=== PATIENT | male | born 1990 ===

== ENCOUNTER 2023-01-02 16:35 | Emergency (ER) | payer MEDICAID, SELFPAY ==
--- NOTE | ~2023-01-02 | XR_ITS ---
EXAMINATION: XR LUMBOSACRAL SPINE CLINICAL INFORMATION: Back pain after heavy lifting. COMPARISON: CT abdomen/pelvis 03/29/2020. TECHNIQUE: Three views of the lumbosacral spine. FINDINGS: Chronic compression deformity at L1. No new compression fractures. No traumatic subluxation. Intravertebral disc height loss at T12-L1, otherwise within normal limits. No significant facet arthropathy. SI joints are symmetric. No significant paraspinal soft tissue abnormality. XR/XR lumbar spine 2-3V IMPRESSION: 1. Chronic compression deformity at L1. 2. No acute compression fractures or traumatic subluxation.
[2023-01-02 17:14] VITALS: BP 121/77; PULSE 142; RESP 18; TEMP 37.1; O2SAT 96; BMI 29.5
--- NOTE | 2023-01-02 17:16 | ED.GENADULT ---
HPI - General Adult General Chief complaint: Back Pain/Injury <SURJIT Suero - Last Filed: 01/03/23 12:28> Stated complaint: lower back pain radiating down leg <SURJIT Suero - Last Filed: 01/03/23 12:28> Time Seen by Provider: 01/02/23 17:39 <SURJIT Suero - Last Filed: 01/03/23 12:28> Source: patient, RN notes reviewed and old records reviewed <Elier Washington - Last Filed: 01/02/23 23:03> Mode of arrival: ambulatory <Elier Washington - Last Filed: 01/02/23 23:03> Limitations: no limitations <Elier Washington - Last Filed: 01/02/23 23:03> History of Present Illness HPI narrative: 82-year-old male presents for evaluation of lower back pain Patient reports that he has a known history of an L1 fracture from about 3 years ago. He states that yesterday he was lifting a large fish tank. Next he states about an hour later he developed severe lower abdominal pain. The pain radiated to both of his legs. Denies any numbness, tingling, weakness, bladder or bowel incontinence or retention He reports his pain is 8/10. The patient is on a methadone program. He reports that he has been from street drugs for at least the last 8 months. Denies Any fevers, chills Of note, in triage the patient was found to have a heart rate that was reported as 234 and regular By the time he had his EKG heart rate was 92, sinus rhythm. No ST segment elevation or depressions. Patient denies any known cardiac history He denies experiencing any shortness of breath, palpitations, chest pain <Elier Washington - Last Filed: 01/02/23 23:03> Related Data Home medications: Previous Rx's Medication Instructions Recorded dexamethasone 4 mg tablet 4 mg PO BID #5 tabs 01/02/23 oxycodone 5 mg tablet 5 mg PO Q6H PRN pain (scale score 01/02/23 7-10) #12 tabs <SURJIT Suero - Last Filed: 01/03/23 12:28> Allergies/adverse reactions: Allergies Allergy/AdvReac Type Severity Reaction Status Date / Time Seasonal Allergies Allergy Mild Itchy Eyes Verified 01/02/23 17:14 tree nut [TREE NUT] Allergy Mild ITCHY Verified 01/02/23 17:14 THROAT <SURJIT Suero - Last Filed: 01/03/23 12:28> Review of Systems Constitutional: Constitutional: Reports as per HPI, Denies chills, Denies fatigue, Denies fever(s) and Denies headache(s) <Elier Washington - Last Filed: 01/02/23 23:03> ENT: Denies headache(s) <Elier Washington - Last Filed: 01/02/23 23:03> Cardiovascular: Cardiovascular: Denies chest pain and Denies dyspnea <Elier Washington - Last Filed: 01/02/23 23:03> Respiratory: Respiratory: Denies cough and Denies dyspnea <Elier Washington - Last Filed: 01/02/23 23:03> Gastrointestinal: Gastrointestinal: Denies abdominal pain, Denies constipation and Denies vomiting <Elier Washington - Last Filed: 01/02/23 23:03> Genitourinary: Genitourinary: Denies difficulty urinating and Denies dysuria <Elier Washington - Last Filed: 01/02/23 23:03> Musculoskeletal: Musculoskeletal: Reports back pain <Elier Washington - Last Filed: 01/02/23 23:03> Neurologic: Denies headache(s) and Denies focal weakness <Elier Washington - Last Filed: 01/02/23 23:03> Endocrine: Endocrine: Denies fatigue <Elier Washington - Last Filed: 01/02/23 23:03> [facility] [place] Social History Social History: Social History Advance Directives: No Advance Directives Information Provided: No <SURJIT Suero - Last Filed: 01/03/23 12:28> Physical Exam ED Vital Signs: Vital Signs - 24 hr 01/02/23 17:14 01/02/23 17:40 01/02/23 19:18 Temperature 98.8 F 98.2 F 98.7 F Pulse Rate 142 H 107 H 90 Respiratory Rate 18 20 12 Blood Pressure 121/77 123/76 Pulse Oximetry 96 96 Oxygen Delivery Method Room Air Room Air 01/02/23 21:29 01/02/23 21:29 Temperature 98.9 F Pulse Rate 83 78 Respiratory Rate 17 18 Blood Pressure 120/74 108/65 Pulse Oximetry 97 96 Oxygen Delivery Method Room Air Room Air BMI result Body Mass Index 29.5 <SURJIT Suero - Last Filed: 01/03/23 12:28> Vital Signs - 24 hr 01/02/23 17:14 01/02/23 17:40 01/02/23 19:18 Temperature 98.8 F 98.2 F 98.7 F Pulse Rate 142 H 107 H 90 Respiratory Rate 18 20 12 Blood Pressure 121/77 123/76 Pulse Oximetry 96 96 Oxygen Delivery Method Room Air Room Air 01/02/23 21:29 01/02/23 21:29 Temperature 98.9 F Pulse Rate 83 78 Respiratory Rate 17 18 Blood Pressure 120/74 108/65 Pulse Oximetry 97 96 Oxygen Delivery Method Room Air Room Air BMI result Body Mass Index 29.5 <Elier Washington - Last Filed: 01/02/23 23:03> Const General: healthy appearing, comfortable, no acute distress, alert and awake <Elier Washington - Last Filed: 01/02/23 23:03> Nutritional Appearance: well nourished <Elier Washington - Last Filed: 01/02/23 23:03> Orientation/consciousness: patient oriented x3 <Elier Washington - Last Filed: 01/02/23 23:03> HENMT Head: Yes normocephalic and Yes atraumatic <Elier Washington - Last Filed: 01/02/23 23:03> Throat: Yes posterior oropharynx normal <Elier Washington - Last Filed: 01/02/23 23:03> Eyes Eyelids: Yes eyelids normal <Elier Washington - Last Filed: 01/02/23 23:03> Conjunctivae: conjunctivae normal <Elier Washington - Last Filed: 01/02/23 23:03> Sclerae: sclerae normal <Elier Washington - Last Filed: 01/02/23 23:03> Corneas: corneas normal <Elier Washington - Last Filed: 01/02/23 23:03> Pupils: Equal, round and reactive pupils present <Elier MendesRed Devil - Last Filed: 01/02/23 23:03> EOM: EOMs intact bilaterally <Elier OJeff - Last Filed: 01/02/23 23:03> Neck Neck: Yes full ROM <Elier ORed Devil - Last Filed: 01/02/23 23:03> Resp Effort & Inspection: normal respiratory effort, able to speak in complete sentences, no audible wheezes and not labored <Elier ORed Devil - Last Filed: 01/02/23 23:03> Auscultation: clear to auscultation bilaterally <Elier O Last Filed: 01/02/23 23:03> Cardio Rate: regular rate <Elier Last Filed: 01/02/23 23:03> Rhythm: regular rhythm <Elier Filed: 01/02/23 23:03> GI Inspection: No distended <Elier OJeff - Last Filed: 01/02/23 23:03> Palpation (GI): Soft to palpation, not firm, nontender, no guarding and not rigid <Elier O Last Filed: 01/02/23 23:03> Auscultation: normoactive bowel sounds <Elier O Last Filed: 01/02/23 23:03> Back/Spine/Pelvis Other: Tenderness across the lumbar region with focal tenderness over L1. No step-offs or deformities. Straight leg raise negative bilaterally. Strength 5/5 to the bilateral lower extremities in all major muscle groups <Elier OJeff - Last Filed: 01/02/23 23:03> Skin General skin exam: no rashes or lesions noted and elasticity normal <Elier O Last Filed: 01/02/23 23:03> Neuro General: patient oriented x3 <Elier O Last Filed: 01/02/23 23:03> Cranial nerves: Yes CN's II-XII intact bilaterally, Yes Equal, round and reactive pupils present and Yes Bilaterally intact EOM present <Elier ORed Devil - Last Filed: 01/02/23 23:03> Cognition (Neuro): normal cognition <Elier Washington - Last Filed: 01/02/23 23:03> Extrem Other: Moving all extremities well without any obvious deformities <Elier Washington - Last Filed: 01/02/23 23:03> Course Course Course Narrative: RME: 32 yold male presents to the ED for lower back pain after heavy lifting of fish tank yesterday. patient states known L1 fracture. also feeling nausous. denies UA symptoms. SARS, lumbar xray, and UA ordered. On triage Heart Rate was 234 highest and lowest 162. patient brought to the ED bed 11 and had EKG which showed normal sinus rhythm with HR of 93. On monitor Heart Rate is now 110. Dr. Luque made aware <SURJIT Suero - Last Filed: 01/03/23 12:28> Reevaluation(s) Reevaluation #1: Patient has had no further evidence of tachycardia, the remainder was workup has been negative. The patient was discharged with dexamethasone and a short course of Percocet for the next 3 days. He will follow-up with his PCP <Elier Washington - Last Filed: 01/02/23 23:03> Time: 21:15 <Elier Washington - Last Filed: 01/02/23 23:03> Reevaluation #2: Received a call from the patient apparently the pharmacy is out of Percocetbonifacio cancel that order and change his prescription to oxycodone without Tylenol <Elier Washington - Last Filed: 01/02/23 23:03> Time: 23:03 <Elier Washington - Last Filed: 01/02/23 23:03> Medications Administered Discontinued Medications Generic Name Dose Route Start Last Admin Trade Name Freq PRN Reason Stop Dose Admin Dexamethasone 4 mg 01/02/23 18:01 01/02/23 18:18 Dexamethasone 4 Mg Tablet PO 01/02/23 18:02 4 mg ONCE ONE Administration Ketorolac Tromethamine 30 mg 01/02/23 18:01 01/02/23 18:18 Ketorolac Tromethamine 30 Mg/Ml Vial IM 01/02/23 18:02 30 mg ONCE ONE Administration Ondansetron HCl 4 mg 01/02/23 20:47 01/02/23 21:25 Ondansetron Odt 4 Mg Tab.Rapdis TRANSLINGU 01/02/23 20:48 4 mg ONCE ONE Administration Oxycodone HCl 5 mg 01/02/23 20:47 01/02/23 21:25 Oxycodone Hcl Immed Release 5 Mg Tablet PO 01/02/23 20:48 5 mg ONCE ONE Administration <SURJIT Suero - Last Filed: 01/03/23 12:28> Medications Administered Discontinued Medications Generic Name Dose Route Start Last Admin Trade Name Gabe PRN Reason Stop Dose Admin Dexamethasone 4 mg 01/02/23 18:01 01/02/23 18:18 Dexamethasone 4 Mg Tablet PO 01/02/23 18:02 4 mg ONCE ONE Administration Ketorolac Tromethamine 30 mg 01/02/23 18:01 01/02/23 18:18 Ketorolac Tromethamine 30 Mg/Ml Vial IM 01/02/23 18:02 30 mg ONCE ONE Administration Ondansetron HCl 4 mg 01/02/23 20:47 01/02/23 21:25 Ondansetron Odt 4 Mg Tab.Rapdis TRANSLINGU 01/02/23 20:48 4 mg ONCE ONE Administration Oxycodone HCl 5 mg 01/02/23 20:47 01/02/23 21:25 Oxycodone Hcl Immed Release 5 Mg Tablet PO 01/02/23 20:48 5 mg ONCE ONE Administration <Elier Washington - Last Filed: 01/02/23 23:03> Medical Decision Making Medical Decision Making MDM Narrative: S for back pain that is most likely radiculopathy related to his of movements yesterday with the large fish tank. Clinically has sciatica. No neuro signs or symptoms. Physical exam is reassuring, no warning signs for chronic wetness syndrome. Given the patient's tachycardia in triage we will get a cardiac workup including cardiac monitoring, electrolytes, high since we troponin. Will also check a TSH level. It is possible the patient had a brief episode of SVT related to the amount of discomfort he was in. While lying on the stretcher he is resting comfortably in his heart rate is regular, 92 on the monitor. Toradol and dexamethasone for his discomfort. <Elier Washington - Last Filed: 01/02/23 23:03> Differential Diagnosis Back pain Radiculopathy Sciatica Disc herniation Muscle spasm Cardiac arrhythmia SVT <Elier Washington - Last Filed: 01/02/23 23:03> Lab Data Result Diagrams: 01/02/23 18:32 01/02/23 18:32 <SURJIT Suero - Last Filed: 01/03/23 12:28> Labs: Lab Results 01/02/23 01/02/23 01/02/23 Range/Units 18:27 18:32 18:32 WBC 6.9 (4.8-10.8) X10*3/uL RBC 5.18 (4.60-5.80) X10*6/uL Hgb 14.7 (14.0-18.0) g/dl Hct 43.8 (42.0-52.0) % MCV 84.6 (80.0-98.0) fL MCH 28.4 (27.0-33.0) pg MCHC 33.6 (31.0-36.0) g/dl RDW 13.5 (11.0-16.0) % Plt Count 187 (160-400) X10*3/uL MPV 9.6 (9.4-12.4) fL Immature Gran % (Auto) 0.3 (0.0-0.4) % Neut % (Auto) 85.3 H (45-73) % Lymph % (Auto) 8.1 L (20-40) % [place] % (Auto) 5.9 (2-11) % Eos % (Auto) 0.1 (0-4) % Baso % (Auto) 0.3 (0-2) % Lymph # (Auto) 0.6 L (1.2-4.9) X10*3/uL [place] # (Auto) 0.4 (0.1-1.2) X10*3/uL Eos # (Auto) 0.0 (0.0-0.4) X10*3/uL Baso # (Auto) 0.0 (0.0-0.2) X10*3/uL Abs Immat Gran (auto) 0.02 (0.00-0.03) X10*3/uL Absolute Neuts (auto) 5.9 (2.0-8.3) x10*3/uL Absolute Nucleated RBC 0.000 (0.0-0.012) X10*3/uL Nucleated RBC % (auto) 0.0 (0.0-0.2) /100WBC PT 11.2 (10.0-13.1) SEC INR 1.0 (0.9-1.1) APTT 29.3 (26.0-36.4) SEC Sodium (135-145) mmol/L Potassium (3.3-5.1) mmol/L Chloride (96-108) mmol/L Carbon Dioxide (22-29) mmol/L Anion Gap (12-20) BUN (9-16) mg/dL Creatinine (0.5-1.4) mg/dL Estim Creat Clear Calc Estimated GFR Random Glucose (60-115) mg/dL Calcium (8.4-10.2) mg/dL Total Bilirubin (0.0-1.0) mg/dL AST (5-37) U/L ALT (0-40) U/L Alkaline Phosphatase (39-117) U/L Troponin I High Sens (<3.5-35.0) ng/L Total Protein (6.5-8.0) g/dL Albumin (3.5-5.0) g/dL TSH (0.32-4.0) uIU/mL Urine Color Urine Appearance Urine pH (5.0-9.0) Ur Specific [place] (1.005-1.025) Urine Protein (Neg-Trace) mg/dL Urine Glucose (UA) (Negative) mg/dL Urine Ketones (Negative) mg/dL Urine Blood (Negative) Urine Nitrite (Negative) Ur Leukocyte Esterase (Negative) Urine Opiates Screen (Not Detect) Urine Fentanyl Screen (Not Detect) Ur Barbiturates Screen (Not Detect) Ur Phencyclidine Scrn (Not Detect) Ur Amphetamines Screen (Not Detect) U Benzodiazepines Scrn (Not Detect) Urine Cocaine Screen (Not Detect) U Marijuana (THC) Screen (Not Detect) Influenza Type A (PCR) NEGATIVE (Negative) Influenza Type B (PCR) NEGATIVE (Negative) RSV RNA Qual (PCR) NEGATIVE (Negative) SARS-CoV-2 RNA (RT-PCR) NEGATIVE (Negative) 01/02/23 01/02/23 01/02/23 Range/Units 18:32 18:32 19:28 WBC (4.8-10.8) X10*3/uL RBC (4.60-5.80) X10*6/uL Hgb (14.0-18.0) g/dl Hct (42.0-52.0) % MCV (80.0-98.0) fL MCH (27.0-33.0) pg MCHC (31.0-36.0) g/dl RDW (11.0-16.0) % Plt Count (160-400) X10*3/uL MPV (9.4-12.4) fL Immature Gran % (Auto) (0.0-0.4) % Neut % (Auto) (45-73) % Lymph % (Auto) (20-40) % [place] % (Auto) (2-11) % Eos % (Auto) (0-4) % Baso % (Auto) (0-2) % Lymph # (Auto) (1.2-4.9) X10*3/uL [place] # (Auto) (0.1-1.2) X10*3/uL Eos # (Auto) (0.0-0.4) X10*3/uL Baso # (Auto) (0.0-0.2) X10*3/uL Abs Immat Gran (auto) (0.00-0.03) X10*3/uL Absolute Neuts (auto) (2.0-8.3) x10*3/uL Absolute Nucleated RBC (0.0-0.012) X10*3/uL Nucleated RBC % (auto) (0.0-0.2) /100WBC PT (10.0-13.1) SEC INR (0.9-1.1) APTT (26.0-36.4) SEC Sodium 138 (135-145) mmol/L Potassium 4.0 (3.3-5.1) mmol/L Chloride 105 (96-108) mmol/L Carbon Dioxide 25 (22-29) mmol/L Anion Gap 12 (12-20) BUN 15 (9-16) mg/dL Creatinine 0.87 (0.5-1.4) mg/dL Estim Creat Clear Calc 124.3 Estimated GFR > 60 Random Glucose 101 (60-115) mg/dL Calcium 9.2 (8.4-10.2) mg/dL Total Bilirubin 0.9 (0.0-1.0) mg/dL AST 23 (5-37) U/L ALT 26 (0-40) U/L Alkaline Phosphatase 83 (39-117) U/L Troponin I High Sens < 2.7 (<3.5-35.0) ng/L Total Protein 6.8 (6.5-8.0) g/dL Albumin 4.4 (3.5-5.0) g/dL TSH 0.33 (0.32-4.0) uIU/mL Urine Color Dark Yellow Urine Appearance Clear Urine pH 5.5 (5.0-9.0) Ur Specific [place] >= 1.030 H (1.005-1.025) Urine Protein Trace (Neg-Trace) mg/dL Urine Glucose (UA) Negative (Negative) mg/dL Urine Ketones Trace (Negative) mg/dL Urine Blood Negative (Negative) Urine Nitrite Negative (Negative) Ur Leukocyte Esterase Negative (Negative) Urine Opiates Screen (Not Detect) Urine Fentanyl Screen (Not Detect) Ur Barbiturates Screen (Not Detect) Ur Phencyclidine Scrn (Not Detect) Ur Amphetamines Screen (Not Detect) U Benzodiazepines Scrn (Not Detect) Urine Cocaine Screen (Not Detect) U Marijuana (THC) Screen (Not Detect) Influenza Type A (PCR) (Negative) Influenza Type B (PCR) (Negative) RSV RNA Qual (PCR) (Negative) SARS-CoV-2 RNA (RT-PCR) (Negative) 01/02/23 Range/Units 19:28 WBC (4.8-10.8) X10*3/uL RBC (4.60-5.80) X10*6/uL Hgb (14.0-18.0) g/dl Hct (42.0-52.0) % MCV (80.0-98.0) fL MCH (27.0-33.0) pg MCHC (31.0-36.0) g/dl RDW (11.0-16.0) % Plt Count (160-400) X10*3/uL MPV (9.4-12.4) fL Immature Gran % (Auto) (0.0-0.4) % Neut % (Auto) (45-73) % Lymph % (Auto) (20-40) % [place] % (Auto) (2-11) % Eos % (Auto) (0-4) % Baso % (Auto) (0-2) % Lymph # (Auto) (1.2-4.9) X10*3/uL [place] # (Auto) (0.1-1.2) X10*3/uL Eos # (Auto) (0.0-0.4) X10*3/uL Baso # (Auto) (0.0-0.2) X10*3/uL Abs Immat Gran (auto) (0.00-0.03) X10*3/uL Absolute Neuts (auto) (2.0-8.3) x10*3/uL Absolute Nucleated RBC (0.0-0.012) X10*3/uL Nucleated RBC % (auto) (0.0-0.2) /100WBC PT (10.0-13.1) SEC INR (0.9-1.1) APTT (26.0-36.4) SEC Sodium (135-145) mmol/L Potassium (3.3-5.1) mmol/L Chloride (96-108) mmol/L Carbon Dioxide (22-29) mmol/L Anion Gap (12-20) BUN (9-16) mg/dL Creatinine (0.5-1.4) mg/dL Estim Creat Clear Calc Estimated GFR Random Glucose (60-115) mg/dL Calcium (8.4-10.2) mg/dL Total Bilirubin (0.0-1.0) mg/dL AST (5-37) U/L ALT (0-40) U/L Alkaline Phosphatase (39-117) U/L Troponin I High Sens (<3.5-35.0) ng/L Total Protein (6.5-8.0) g/dL Albumin (3.5-5.0) g/dL TSH (0.32-4.0) uIU/mL Urine Color Urine Appearance Urine pH (5.0-9.0) Ur Specific [place] (1.005-1.025) Urine Protein (Neg-Trace) mg/dL Urine Glucose (UA) (Negative) mg/dL Urine Ketones (Negative) mg/dL Urine Blood (Negative) Urine Nitrite (Negative) Ur Leukocyte Esterase (Negative) Urine Opiates Screen Not Detected (Not Detect) Urine Fentanyl Screen POSITIVE H (Not Detect) Ur Barbiturates Screen Not Detected (Not Detect) Ur Phencyclidine Scrn Not Detected (Not Detect) Ur Amphetamines Screen Not Detected (Not Detect) U Benzodiazepines Scrn Not Detected (Not Detect) Urine Cocaine Screen Not Detected (Not Detect) U Marijuana (THC) Screen Not Detected (Not Detect) Influenza Type A (PCR) (Negative) Influenza Type B (PCR) (Negative) RSV RNA Qual (PCR) (Negative) SARS-CoV-2 RNA (RT-PCR) (Negative) <SURJIT Suero - Last Filed: 01/03/23 12:28> Lab Results 01/02/23 01/02/23 01/02/23 Range/Units 18:27 18:32 18:32 WBC 6.9 (4.8-10.8) X10*3/uL RBC 5.18 (4.60-5.80) X10*6/uL Hgb 14.7 (14.0-18.0) g/dl Hct 43.8 (42.0-52.0) % MCV 84.6 (80.0-98.0) fL MCH 28.4 (27.0-33.0) pg MCHC 33.6 (31.0-36.0) g/dl RDW 13.5 (11.0-16.0) % Plt Count 187 (160-400) X10*3/uL MPV 9.6 (9.4-12.4) fL Immature Gran % (Auto) 0.3 (0.0-0.4) % Neut % (Auto) 85.3 H (45-73) % Lymph % (Auto) 8.1 L (20-40) % [place] % (Auto) 5.9 (2-11) % Eos % (Auto) 0.1 (0-4) % Baso % (Auto) 0.3 (0-2) % Lymph # (Auto) 0.6 L (1.2-4.9) X10*3/uL [place] # (Auto) 0.4 (0.1-1.2) X10*3/uL Eos # (Auto) 0.0 (0.0-0.4) X10*3/uL Baso # (Auto) 0.0 (0.0-0.2) X10*3/uL Abs Immat Gran (auto) 0.02 (0.00-0.03) X10*3/uL Absolute Neuts (auto) 5.9 (2.0-8.3) x10*3/uL Absolute Nucleated RBC 0.000 (0.0-0.012) X10*3/uL Nucleated RBC % (auto) 0.0 (0.0-0.2) /100WBC PT 11.2 (10.0-13.1) SEC INR 1.0 (0.9-1.1) APTT 29.3 (26.0-36.4) SEC Sodium (135-145) mmol/L Potassium (3.3-5.1) mmol/L Chloride (96-108) mmol/L Carbon Dioxide (22-29) mmol/L Anion Gap (12-20) BUN (9-16) mg/dL Creatinine (0.5-1.4) mg/dL Estim Creat Clear Calc Estimated GFR Random Glucose (60-115) mg/dL Calcium (8.4-10.2) mg/dL Total Bilirubin (0.0-1.0) mg/dL AST (5-37) U/L ALT (0-40) U/L Alkaline Phosphatase (39-117) U/L Troponin I High Sens (<3.5-35.0) ng/L Total Protein (6.5-8.0) g/dL Albumin (3.5-5.0) g/dL TSH (0.32-4.0) uIU/mL Urine Color Urine Appearance Urine pH (5.0-9.0) Ur Specific [place] (1.005-1.025) Urine Protein (Neg-Trace) mg/dL Urine Glucose (UA) (Negative) mg/dL Urine Ketones (Negative) mg/dL Urine Blood (Negative) Urine Nitrite (Negative) Ur Leukocyte Esterase (Negative) Urine Opiates Screen (Not Detect) Urine Fentanyl Screen (Not Detect) Ur Barbiturates Screen (Not Detect) Ur Phencyclidine Scrn (Not Detect) Ur Amphetamines Screen (Not Detect) U Benzodiazepines Scrn (Not Detect) Urine Cocaine Screen (Not Detect) U Marijuana (THC) Screen (Not Detect) Influenza Type A (PCR) NEGATIVE (Negative) Influenza Type B (PCR) NEGATIVE (Negative) RSV RNA Qual (PCR) NEGATIVE (Negative) SARS-CoV-2 RNA (RT-PCR) NEGATIVE (Negative) 01/02/23 01/02/23 01/02/23 Range/Units 18:32 18:32 19:28 WBC (4.8-10.8) X10*3/uL RBC (4.60-5.80) X10*6/uL Hgb (14.0-18.0) g/dl Hct (42.0-52.0) % MCV (80.0-98.0) fL MCH (27.0-33.0) pg MCHC (31.0-36.0) g/dl RDW (11.0-16.0) % Plt Count (160-400) X10*3/uL MPV (9.4-12.4) fL Immature Gran % (Auto) (0.0-0.4) % Neut % (Auto) (45-73) % Lymph % (Auto) (20-40) % [place] % (Auto) (2-11) % Eos % (Auto) (0-4) % Baso % (Auto) (0-2) % Lymph # (Auto) (1.2-4.9) X10*3/uL [place] # (Auto) (0.1-1.2) X10*3/uL Eos # (Auto) (0.0-0.4) X10*3/uL Baso # (Auto) (0.0-0.2) X10*3/uL Abs Immat Gran (auto) (0.00-0.03) X10*3/uL Absolute Neuts (auto) (2.0-8.3) x10*3/uL Absolute Nucleated RBC (0.0-0.012) X10*3/uL Nucleated RBC % (auto) (0.0-0.2) /100WBC PT (10.0-13.1) SEC INR (0.9-1.1) APTT (26.0-36.4) SEC Sodium 138 (135-145) mmol/L Potassium 4.0 (3.3-5.1) mmol/L Chloride 105 (96-108) mmol/L Carbon Dioxide 25 (22-29) mmol/L Anion Gap 12 (12-20) BUN 15 (9-16) mg/dL Creatinine 0.87 (0.5-1.4) mg/dL Estim Creat Clear Calc 124.3 Estimated GFR > 60 Random Glucose 101 (60-115) mg/dL Calcium 9.2 (8.4-10.2) mg/dL Total Bilirubin 0.9 (0.0-1.0) mg/dL AST 23 (5-37) U/L ALT 26 (0-40) U/L Alkaline Phosphatase 83 (39-117) U/L Troponin I High Sens < 2.7 (<3.5-35.0) ng/L Total Protein 6.8 (6.5-8.0) g/dL Albumin 4.4 (3.5-5.0) g/dL TSH 0.33 (0.32-4.0) uIU/mL Urine Color Dark Yellow Urine Appearance Clear Urine pH 5.5 (5.0-9.0) Ur Specific [place] >= 1.030 H (1.005-1.025) Urine Protein Trace (Neg-Trace) mg/dL Urine Glucose (UA) Negative (Negative) mg/dL Urine Ketones Trace (Negative) mg/dL Urine Blood Negative (Negative) Urine Nitrite Negative (Negative) Ur Leukocyte Esterase Negative (Negative) Urine Opiates Screen (Not Detect) Urine Fentanyl Screen (Not Detect) Ur Barbiturates Screen (Not Detect) Ur Phencyclidine Scrn (Not Detect) Ur Amphetamines Screen (Not Detect) U Benzodiazepines Scrn (Not Detect) Urine Cocaine Screen (Not Detect) U Marijuana (THC) Screen (Not Detect) Influenza Type A (PCR) (Negative) Influenza Type B (PCR) (Negative) RSV RNA Qual (PCR) (Negative) SARS-CoV-2 RNA (RT-PCR) (Negative) 01/02/23 Range/Units 19:28 WBC (4.8-10.8) X10*3/uL RBC (4.60-5.80) X10*6/uL Hgb (14.0-18.0) g/dl Hct (42.0-52.0) % MCV (80.0-98.0) fL MCH (27.0-33.0) pg MCHC (31.0-36.0) g/dl RDW (11.0-16.0) % Plt Count (160-400) X10*3/uL MPV (9.4-12.4) fL Immature Gran % (Auto) (0.0-0.4) % Neut % (Auto) (45-73) % Lymph % (Auto) (20-40) % [place] % (Auto) (2-11) % Eos % (Auto) (0-4) % Baso % (Auto) (0-2) % Lymph # (Auto) (1.2-4.9) X10*3/uL [place] # (Auto) (0.1-1.2) X10*3/uL Eos # (Auto) (0.0-0.4) X10*3/uL Baso # (Auto) (0.0-0.2) X10*3/uL Abs Immat Gran (auto) (0.00-0.03) X10*3/uL Absolute Neuts (auto) (2.0-8.3) x10*3/uL Absolute Nucleated RBC (0.0-0.012) X10*3/uL Nucleated RBC % (auto) (0.0-0.2) /100WBC PT (10.0-13.1) SEC INR (0.9-1.1) APTT (26.0-36.4) SEC Sodium (135-145) mmol/L Potassium (3.3-5.1) mmol/L Chloride (96-108) mmol/L Carbon Dioxide (22-29) mmol/L Anion Gap (12-20) BUN (9-16) mg/dL Creatinine (0.5-1.4) mg/dL Estim Creat Clear Calc Estimated GFR Random Glucose (60-115) mg/dL Calcium (8.4-10.2) mg/dL Total Bilirubin (0.0-1.0) mg/dL AST (5-37) U/L ALT (0-40) U/L Alkaline Phosphatase (39-117) U/L Troponin I High Sens (<3.5-35.0) ng/L Total Protein (6.5-8.0) g/dL Albumin (3.5-5.0) g/dL TSH (0.32-4.0) uIU/mL Urine Color Urine Appearance Urine pH (5.0-9.0) Ur Specific [place] (1.005-1.025) Urine Protein (Neg-Trace) mg/dL Urine Glucose (UA) (Negative) mg/dL Urine Ketones (Negative) mg/dL Urine Blood (Negative) Urine Nitrite (Negative) Ur Leukocyte Esterase (Negative) Urine Opiates Screen Not Detected (Not Detect) Urine Fentanyl Screen POSITIVE H (Not Detect) Ur Barbiturates Screen Not Detected (Not Detect) Ur Phencyclidine Scrn Not Detected (Not Detect) Ur Amphetamines Screen Not Detected (Not Detect) U Benzodiazepines Scrn Not Detected (Not Detect) Urine Cocaine Screen Not Detected (Not Detect) U Marijuana (THC) Screen Not Detected (Not Detect) Influenza Type A (PCR) (Negative) Influenza Type B (PCR) (Negative) RSV RNA Qual (PCR) (Negative) SARS-CoV-2 RNA (RT-PCR) (Negative) <Elier Washington - Last Filed: 01/02/23 23:03> Independent Interpretation I performed an independent interpretation of an: EKG (Sinus rhythm with a heart of 92 beats per minute.) <Elier Washington - Last Filed: 01/02/23 23:03> Discharge Plan Discharge Clinical Impression: Lumbar radiculopathy <SURJIT Suero - Last Filed: 01/03/23 12:28> Patient Disposition: Home, Self-Care <SURJIT Suero - Last Filed: 01/03/23 12:28> Instructions: Lumbar Radiculopathy (ED) <SURJIT Suero - Last Filed: 01/03/23 12:28> Prescriptions: New dexamethasone 4 mg tablet 4 mg PO BID Qty: 5 0RF oxycodone 5 mg tablet 5 mg PO Q6H PRN (Reason: pain (scale score 7-10)) Qty: 12 0RF Rx Instructions: Partial Fill upon patient request. <SURJIT Suero - Last Filed: 01/03/23 12:28> Interventions: ED Discharge Assessment Last Done: 01/02/23 21:28 <SURJIT Suero Last Filed: 01/03/23 12:28> Discharge Date/Time: 01/02/23 21:32 <SURJIT Suero - Last Filed: 01/03/23 12:28>
--- NOTE | 2023-01-02 17:18 | ECG_ITS ---
Test Reason : TACHYCARDIA Blood Pressure : / mmHG Vent. Rate : 092 BPM Atrial Rate : 092 BPM P-R Int : 154 ms QRS Dur : 084 ms QT Int : 346 ms P-R-T Axes : 076 026 016 degrees QTc Int : 427 ms Normal sinus rhythm Normal ECG When compared with ECG of 01-DEC-2018 12:37, ST no longer elevated in Anterolateral leads T wave inversion now evident in Inferior leads Nonspecific T wave abnormality now evident in Lateral leads Referred By: Dylan Alvarado Electronically Signed By:ROBERTO BULLOCK MD
[2023-01-02 17:40] VITALS: PULSE 107; RESP 20; TEMP 36.8
--- NOTE | 2023-01-02 17:42 | PC.NURSE ---
Pt brought back from triage for episode of SVT, however patient denies complaints of CP/SOB, reports he came to the ED for a previous back injury that is hurting this morning d/t heavy lifting yesterday. complaints of fever/nausea and not feeling well this morning. Pt currently in HR range of 102-108, a/Ox4, denies pain at this time, currently at Xray for back stable on RA. Pt brought into ED in wheelchair drinking sprite, and denying any complaints n/v/d
[2023-01-02] MEDS: Ketorolac Tromethamine 30 MG/ML VIAL IM (18:18)
[2023-01-02] MEDS: dexAMETHasone 4 MG TABLET PO (18:18)
[2023-01-02 18:37] LABS: MANUAL DIFF FLAG NO
[2023-01-02 18:41] LABS: Basophils Percent Auto 0.3 % (0-2); Eosinophils Percent Auto 0.1 % (0-4); Hematocrit 43.8 % (42.0-52.0); Hemoglobin 14.7 g/dl (14.0-18.0); Imm Gran Abs Auto 0.02 X10*3/uL (0.00-0.03); Imm Gran Pct Auto 0.3 % (0.0-0.4); Lymphocytes Absolute Auto 0.6 X10*3/uL (1.2-4.9); Lymphocytes Percent Auto 8.1 % (20-40); Mean Corpuscular HGB Conc 33.6 g/dl (31.0-36.0); Mean Corpuscular Hemoglobin 28.4 pg (27.0-33.0); Mean Corpuscular Volume 84.6 fL (80.0-98.0); Mean Platelet Volume 9.6 fL (9.4-12.4); Monocytes Absolute Auto 0.4 X10*3/uL (0.1-1.2); Monocytes Percent Auto 5.9 % (2-11); Neutrophils Absolute Auto 5.9 x10*3/uL (2.0-8.3); Neutrophils Percent Auto 85.3 % (45-73); Platelet Count 187 X10*3/uL (160-400); Red Blood Count 5.18 X10*6/uL (4.60-5.80); Red Cell Distribution Width 13.5 % (11.0-16.0); White Blood Count 6.9 X10*3/uL (4.8-10.8)
[2023-01-02 18:46] LABS: Prothrombin Time 11.2 SEC (10.0-13.1)
[2023-01-02 18:49] LABS: Partial Thromboplastin Time 29.3 SEC (26.0-36.4)
[2023-01-02 19:02] LABS: Alanine Aminotransferase 26 U/L (0-40); Albumin Level 4.4 g/dL (3.5-5.0); Alkaline Phosphatase 83 U/L (39-117); Anion Gap 12 (12-20); Aspartate Amino Transferase 23 U/L (5-37); Bilirubin Total 0.9 mg/dL (0.0-1.0); Blood Urea Nitrogen 15 mg/dL (9-16); Calcium 9.2 mg/dL (8.4-10.2); Carbon Dioxide 25 mmol/L (22-29); Chloride 105 mmol/L (96-108); Creatinine Clr Calc Pharmacy 124.3; Estimated Glomerular Filt Rate > 60; Glucose Random 101 mg/dL (60-115); Sodium 138 mmol/L (135-145); Total Protein 6.8 g/dL (6.5-8.0)
[2023-01-02 19:12] LABS: Troponin-I High Sensitivity < 2.7 ng/L (<3.5-35.0)
[2023-01-02 19:15] LABS: Influenza A PCR NEGATIVE (Negative); Influenza B PCR NEGATIVE (Negative); Resp Syncy Virus RNA Qual PCR NEGATIVE (Negative); SARS COV2 PCR INHOUSE NEGATIVE (Negative)
[2023-01-02 19:16] LABS: TSH reflex Free T4 0.33 uIU/mL (0.32-4.0)
[2023-01-02 19:18] VITALS: BP 123/76; PULSE 90; RESP 12; TEMP 37.1; O2SAT 96
--- NOTE | 2023-01-02 19:25 | PC.NURSE ---
assumed care of pt aox4 c/o 04/04 pain and nausea observed pt ambulate to restroom safely/independently no apparent distress, able to speak in full sentences
[2023-01-02 19:36] LABS: Appearance Urine Clear; Color Urine Dark Yellow; Glucose Urine UA Negative (Negative); Leukocyte Esterase Urine Negative (Negative); Nitrite Urine Negative (Negative); PH 5.5 (5.0-9.0); Specific Gravity - Urine >= 1.030 (1.005-1.025); Urine Blood Negative (Negative); Urine Ketones Trace mg/dL (Negative); Urine Protein Trace mg/dL (Neg-Trace)
[2023-01-02 19:53] LABS: Amphetamine Screen Urine Not Detected (Not Detect); Barbiturates, Urine Not Detected (Not Detect); Benzodiazepines Screen Urine Not Detected (Not Detect); Cannabinoid Screen Urine Not Detected (Not Detect); Cocaine Screen Urine Not Detected (Not Detect); Fentanyl, urine POSITIVE (Not Detect); Opiate Screen Urine Not Detected (Not Detect); Phencyclidine Screen Urine Not Detected (Not Detect)
[2023-01-02] MEDS: Ondansetron ODT 4 MG TAB.RAPDIS TRANSLINGU (21:25)
[2023-01-02] MEDS: oxyCODONE HCl Immed Release 5 MG TABLET PO (21:25)
[2023-01-02 21:29] VITALS: BP 108/65; BP 120/74; PULSE 78; PULSE 83; RESP 17; RESP 18; TEMP 37.2; O2SAT 96; O2SAT 97
--- NOTE | 2023-01-02 21:32 | PC.NURSE ---
Discharge instructions given and explained to the patient Patient is able to ambulate safely/independently No apparent distress aox4 pt picked up by girlfriend girlfriend and daughter at bedside
== END 2023-01-02 21:32 | disposition home or self-care (01) ==
PROVIDERS: Physician Assistant; Emergency Provider Internal Medicine
DX: M54.50 Low back pain, unspecified (principal); R00.0 Tachycardia, unspecified; Z20.822 Contact with and (suspected) exposure to COVID-19; Z20.828 Contact with and (suspected) exposure to other viral communicable diseases; Z79.899 Other long term (current) drug therapy
CPT/HCPCS: 0241U; 36415; 72100; 80053; 80307; 81003; 84443; 84484; 85025; 85610; 85730; 93005; 96372; 99284; 99285; J1885; J8540

== ENCOUNTER 2023-05-25 06:18 | Inpatient (IN) | payer MEDICAID, SELFPAY ==
[2023-05-25] VITALS (16 sets, daily range): BP systolic 109–129; BP diastolic 68–77; PULSE 65–86; RESP 14–18; TEMP 36.2–37.5; O2SAT 96–100; BMI 27.4; BMI 29.4
--- NOTE | ~2023-05-25 | XR_ITS ---
EXAMINATION: XR KNEE, LEFT CLINICAL INFORMATION: Left knee pain and swelling. COMPARISON: Left foot radiographs dated 03/29/2020. TECHNIQUE: Four views of the left knee. FINDINGS: A 2.5 cm triangular radiopaque density seen along the posterior margin of the lateral femoral tibial compartment. The joint spaces are unremarkable. There is a small suprapatellar joint effusion. The surrounding soft tissues are unremarkable. XR/XR knee LT 4V IMPRESSION: 1. 2.5 cm triangular radiopaque density along the posterior margin of the lateral femoral tibial compartment is nonspecific, but was not seen previously and has the appearance of a radiopaque foreign body, not seen on the 2020 study. Correlate with physical exam and patient history. 2. Small suprapatellar joint effusion without underlying osseous abnormality.
--- NOTE | ~2023-05-25 | CT_ITS ---
EXAMINATION: CT KNEE WITHOUT CONTRAST, LEFT CLINICAL INFORMATION: Left knee pain and swelling. Retained foreign body. COMPARISON: Left knee radiographs dated 05/25/2023. TECHNIQUE: Contiguous axial CT images of the left knee were obtained without contrast. Multiplanar reformats were provided and reviewed. This CT examination was performed using dose optimization techniques as appropriate, variously including the following: *Automated exposure control *Adjustment of mA and/or kV according to patient size (this includes techniques or standardized protocols for targeted exams where dose is matched to indication/reason for exam; i.e. extremities or head) *Use of iterative reconstruction technique. DOSE: 251 mGy-cm. FINDINGS: No acute fracture or dislocation. No joint space narrowing or marginal osteophytes. No concerning lytic or blastic osseous lesion. No evidence of avascular necrosis. Within the posterior joint space in the region of the posterolateral meniscal body adjacent to the lateral tibial plateau, there is a metallic foreign body measuring approximately 1.0 x 0.3 x 2.0 cm. Findings are consistent with a metallic foreign body. Moderate knee joint effusion. The visualized muscles and tendons are grossly intact; however, evaluation is limited on CT examination. No additional soft tissue mass or fluid collection. CT/CT knee LT wo IV con IMPRESSION: 1. Metallic foreign body measuring up to 2.0 cm within the posterior joint space in the region of the posteriolateral meniscal body adjacent to the lateral tibial plateau. Findings are consistent with a metallic foreign body. 2. No acute fracture or dislocation. No evidence of avascular necrosis. 3. Moderate knee joint effusion.
--- OUTSIDE RECORDS SUMMARY | 2023-05-25 07:21 | XMS_ITS | Continuity of Care Document ---
Author Name Unknown Organization [facility] Address [address] [place] [address]- Care Team Providers Care Staff Mine Warfare Officer Name Role Phone Ricky DIAMOND, Kenya S Primary Care Physician [place] [facility] [place](s): 10/08/21 - 11/07/21 [facility] [address], [place] [address] Attending Physician: Parul Aguilar Admitting Physician: Parul Aguilar Referring Physician: AdmtrParul Allergies, Adverse Reactions, Alerts No Known Allergies Immunizations Given and Recorded Vaccine Date Status Refusal Reason SARS-CoV-2 (COVID-19) mRNA-1273 vaccine 1 06/17/21 Given 1? Unknown: Resend to [facility]. Medications Claritin 10 mg oral tablet 10 mg, 1, tablet, By Mouth, Daily, # 30 tablet, Refills 0, Maintenance, 02/13/19 15:32:20 EDT Start Date: 02/13/19 Status: Ordered prazosin 5 mg oral capsule 1 capsule = 5 mg, By Mouth, 3 times a day, 0 Refills, Maintenance Start Date: 10/10/12 Status: Ordered propranolol 10 mg oral tablet See Instructions, take 1 tablet as needed prior to scheduled medical or dental visits when procedures will be performed, # 30 tablet, 0 Refills, Maintenance Start Date: 10/10/12 Status: Ordered sertraline 100 mg oral tablet 1 tablet = 100 mg, By Mouth, Daily, # 30 tablet, 0 Refills, Maintenance, Tablet Start Date: 10/10/12 Status: Ordered Zofran 4 mg oral tablet 1 tablet = 4 mg, By Mouth, Every 8 hours, PRN as needed for nausea/vomiting, # 15 tablet, 0 Refills, Maintenance, 04/01/20 12:47:00 EDT, Tablet Start Date: 04/01/20 Stop Date: 04/06/20 Status: Ordered Social History Social History Type Response Smoking Status 10 or more cigarette s (1/2 pack or more)/day in last 30 days entered on: 02/13/19 Sex
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
--- OUTSIDE RECORDS SUMMARY | 2023-05-25 07:21 | XMS_ITS | Continuity of Care Document ---
Author Name Unknown Organization [facility] Address [address] [place] [address]- Care Team Providers Care Rn Cardiology Name Role Phone Kenya García MD Primary Care Physician Encounter [facility] [place] Date(s): 11/21/19 - 12/01/19 [facility] [address] [place] [address]- [facility] Attending Physician: Parul Aguilar Admitting Physician: AdmtrParul Referring Physician: Admtr ArKeo Allergies, Adverse Reactions, Alerts Substance Reaction Severity [...] nausea/vomiting, # 15 tablet, 0 Refills, Maintenance, 02/13/19 16:59:44 EDT, Tablet Start Date: 02/13/19 Stop Date: 02/18/19 Status: Ordered Social History Social History Type Response Smoking Status 10 or more cigarette s (1/2 pack or more)/day in last 30 days entered on: 02/13/19 Sex
--- OUTSIDE RECORDS SUMMARY | 2023-05-25 07:21 | XMS_ITS | Continuity of Care Document ---
Author Name Unknown Organization [facility] Address [address] [place] [address]- Care Team Providers Care Sr. Manager Name Role Phone Ricky DIAMOND, Kenya Dawkins Primary Care Physician [place] [facility] [place] 10[place]08/21 - 10/15/21 [facility] [address] [place], [place] [address] Attending Physician: Rosmery Ardon MD Referring Physician: Kenya García MD Allergies, Adverse Reactions, Alerts No Known Allergies Immunizations Given and Recorded Vaccine Date Status Refusal Reason SARS-CoV-2 (COVID-19) mRNA-5934 vaccine 1 06/17/21 Given 1? Unknown: Resend to [facility]. Medications Claritin 10 mg oral tablet [...]
--- OUTSIDE RECORDS SUMMARY | 2023-05-25 07:21 | XMS_ITS | Continuity of Care Document ---
Author Name Unknown Organization [facility] Address [address] [place] [address]- Care Team Providers Care Brake Repair Mechanic Name Role Phone Kenya García MD Primary Care Physician [phone] Encounter [facility] [place] [facility] [id number] Date(s): 11/21/19 - 11/28/19 [facility] [address] [place] [address]- [facility] Encounter Diagnosis Viral URI(Discharge Diagnosis) - 11/21/19 Attending Physician: Evans Lopez MD Referring Physician: Kenya García MD Allergies, Adverse Reactions, Alerts Substance Reaction [...] Refills, Maintenance Start Date: 10/10/12 Status: Ordered pseudoephedrine 30 mg oral tablet 2 tablet = 60 mg, By Mouth, Every 6 hours, PRN for congestion, # 48 tablet, 0 Refills, Acute 11/30/19 16:28:00 EST, 11/21/19 16:28:00 EST, Tablet, [id number], 165, cm, 11/21/19 16:12:00 EST, Height, 71, kg, 11/21/19 16:12:00 EST, Dry Weight Start Date: 11/21/19 Stop Date: 11/30/19 Status: Ordered sertraline 100 mg oral tablet [...] Date: 02/13/19 Stop Date: 02/18/19 Status: Ordered Problem List Diagnosis Diagnosis Type Effective Dates Health Status Clini shmuel Service Informant Viral URI Discharge Diagnosis 11/21/19 Vital Signs Most recent to oldest [Reference Range]: 1 Height 165 cm (11/21/19 4:12 PM) Weight 71.0 kg (11/21/19 4:12 PM) Oxygen Saturation [94-100 %] 100 % (11/21/19 4:12 PM) Pulse Rate [55-90 bpm] 70 bpm (11/21/19 4:12 PM) Body Mass Index [18.5-24.99] 26.08 *H* (11/21/19 4:12 PM) Blood Pressure [90-138/55-84 mm Hg] 132/ 82mm Hg (11/21/19 4:12 PM) Respiratory Rate [16-30 br/min] 20 br/mi n (11/21/19 4:12 PM) Temperature [96.8-100.4 DegF] 98.1 DegF (11/21/19 4:12 PM) Mode of Delivery (Oxygen) Room air (11/21/19 4:12 PM) Blood pressure sites Arm, left (11/21/19 4:12 PM) Temperature Route Oral (11/21/19 4:12 PM) Dry Weight 71.0 kg (11/21/19 4:12 PM) Weight Obtained Via Standing scale (11/21/19 4:12 PM) Dry Weight Obtained Via Standing scale (11/21/19 4:12 PM) Social History Social History Type Response Smoking Status 10 or more cigarette s (1/2 pack or more)/day in last 30 days entered on: 02/13/19 Sex
--- NOTE | 2023-05-25 07:41 | ED_ITS ---
HPI - General Adult General Chief complaint: Wound/Laceration Stated complaint: Lac on knee/swelling Time Seen by Provider: 05/25/23 07:35 Source: patient Mode of arrival: ambulatory Limitations: no limitations History of Present Illness HPI narrative: Patient is a 32 year old male presenting after cutting his leg with a boxcutter yesterday. He reports that about 5:30 yesterday he was opening boxes with a boxcutter when he accidentally slashed his leg. He reports the blade was clean. He was able to control the bleeding at home but states he has been in a significant amount of pain and swelling. He cannot recall his last tetanus shot. Not on blood thinners. Denies fevers, chills, chest pain, shortness of breath, nausea or vomiting. Related Data Previous Rx's Medication Instructions Recorded dexamethasone 4 mg tablet 4 mg PO BID #5 tabs 01/02/23 oxycodone 5 mg tablet 5 mg PO Q6H PRN pain (scale score 01/02/23 7-10) #12 tabs cephalexin 500 mg tablet 500 mg PO Q6H 10 days #40 tabs 05/25/23 doxycycline hyclate 100 mg capsule 100 mg PO BID 10 days #20 caps 05/25/23 Allergies Allergy/AdvReac Type Severity Reaction Status Date / Time Seasonal Allergies Allergy Mild Itchy Eyes Verified 01/02/23 17:14 tree nut [TREE NUT] Allergy Mild ITCHY Verified 01/02/23 17:14 THROAT Review of Systems Review of Systems: Constitutional : No Weight loss, No Fever, No Chills, No Fatigue, No Malaise ENT/Mouth : No sore throat, No Rhinorrhea Eyes: No Eye Pain, No Swelling, No Redness Cardiovascular : No Chest Pain, No SOB, No Dyspnea on Exertion, No Orthopnea, No Edema, No Palpitations Respiratory : No Cough, No Sputum, No Wheezing Gastrointestinal : No Nausea, No Vomiting, No Diarrhea, No Constipation, No abdominal Pain, No Hematochezia, No Melena Genitourinary : No Dysuria, No Urinary Frequency, No Hematuria, Musculoskeletal : + joint pain, No Myalgias, + Joint Swelling Skin : +leg cut, No rash Neuro : No Weakness, No Numbness, No Dizziness, No Headache Psych : No Anxiety/Panic, No Depression All other systems reviewed and are negative Yes all other systems are reviewed and are negative [facility] Past Medical History Attestation statement: The following information was validated with the patient. Source: old records reviewed and nursing notes reviewed Social History Social History Smoked in Last 30 Days: Yes Advance Directives: No Physical Exam ED Vital Signs: Vital Signs - 24 hr 05/25/23 06:40 05/25/23 07:20 05/25/23 10:06 Temperature 99.5 F 98.4 F 98.8 F Pulse Rate 86 78 79 Respiratory Rate 18 18 16 Blood Pressure 109/68 117/71 117/73 Pulse Oximetry 97 97 99 Oxygen Delivery Method Room Air Room Air BMI result Body Mass Index 27.4 VSS Appearance: Alert.? Oriented X3.? No acute distress.? Head: Normocephalic, atraumatic, no step-offs or deformities Eyes: Pupils equal, round and reactive to light.? CVS: Normal heart rate and rhythm.? Pulses normal.? Respiratory: No respiratory distress.? Breath sounds normal.? Abdomen: Soft and nontender.? Skin: Skin warm and dry.? Normal skin color. +1cm puncture wound of the left anterior thigh, multiple abrasions to the neck and arms. Extremities:? No calf ttp. 5/5 strength to bilateral upper and lower extremities. 2+ nonpitting Edema of the left knee present w/ overlying warmth. Extremity pulses 2+ and symmetric, sensory and motor function intact. + pain w/ rom of L knee both extension and flexion. Back: No midline tenderness, no C-spine tenderness, full range of motion, no CVA tenderness bilaterally Neuro: Oriented X 3.? No motor deficit.? No sensory deficit. CN 2-12 intact Course Reevaluation(s) Reevaluation #1: CBC with white count of 11.3, no left shift. Chemistry unremarkable. Will order blood cultures, lactic acid, ESR, CRP. X-rays do show a foreign body in the left knee, posterior aspect. Patient significant discomfort, I did speak to ortho recommends outpatient follow-up, as soon as possible, I do not feel comfortable with this at this time as patient continues to have increasing pain even while in the department. Discussed this case with my attending who looked with ultrasound foreign bodies about 4 cm deep. Time: 09:47 Reevaluation #2: Discussed case with Dr. Lee of general surgery who came down and evaluated the patient. After looking at the imaging, he does not think that this case is suitable for general surgery as the FB lies along the tibial plateau within the joint space. Recommends follow with ortho for management. Time: 12:02 Reevaluation #3: Plan to take patient to OR. Dr. Nguyen evaluated patient Patient to remain NPO. Patient will require inpatient hospital admission for antibiotics Time: 12:59 Medications Administered Discontinued Medications Generic Name Dose Route Start Last Admin Trade Name Freq PRN Reason Stop Dose Admin Diphtheria/Tetanus/Acell Pertussis 0.5 ml 05/25/23 07:54 05/25/23 08:01 Diphth,Pertus(Acell),Tet Adult 0.5 Ml Syringe IM 05/25/23 07:55 0.5 ml .ONCE ONE Administration Piperacillin Sod/Tazobactam 50 mls @ 100 mls/hr 05/25/23 08:26 05/25/23 09:27 Sod 3.375 gm/ Sodium Chloride IV 05/25/23 08:55 Infused ONCE ONE Infusion Piperacillin Sod/Tazobactam 50 mls @ 100 mls/hr 05/25/23 09:39 05/25/23 10:09 Sod 3.375 gm/ Sodium Chloride IV 05/25/23 10:08 Not Given ONCE ONE Ketorolac Tromethamine 30 mg 05/25/23 07:54 05/25/23 08:01 Ketorolac Tromethamine 15 Mg/Ml Vial IM 05/25/23 07:55 30 mg ONCE ONE Administration Morphine Sulfate 4 mg 05/25/23 09:47 05/25/23 10:09 Morphine Sulfate 4 Mg/Ml Cartridge IVPUSH 05/25/23 09:48 4 mg ONCE ONE Administration Protocol Medical Decision Making Medical Decision Making [facility] Narrative: 7:35 32 year old male presenting with a 1cm puncture wound of the left anterior thigh that occurred yesterday. Exam signficant for 1cm laceration on the anterior left thigh. Pulses 2+ and symmetric, motor and sensory function intact in the extremities. 2+ edema of the left knee. This is likely a superficial leg laceration/puncture. Due to to painful range of motion some suspicion for septic joint so will rule out. Unlikely erysipelas, abscess, or necrotizing infection based on history and physical exam. Unlikely fracture, dislocation, or osteomyelitis but will rule out with knee X-Ray. Plan: imaging, toradol, boosterix Differential Diagnosis Differential Diagnoses: The differential diagnosis associated with the pr esentation includes This is likely a superficial leg laceration/puncture. Due to to painful range of motion some suspicion for septic joint so will rule out. Unlikely erysipelas, abscess, or necrotizing infection based on history and physical exam. Unlikely fracture, dislocation, or osteomyelitis but will rule out with knee X-Ray. Admission/Observation Consideration of admission/observation: Escalation of care including admission/observation considered Not indicated. Consult Healthcare Provider Management of the patient was discussed with: Automotive Paint Technician (ortho ) Lab Data MDM Lab Attestation statement: I reviewed the patient's lab results. 05/25/23 08:32 05/25/23 08:32 Labs: Lab Results 05/25/23 05/25/23 05/25/23 Range/Units 08:32 08:32 08:32 WBC 11.3 H (4.8-10.8) X10*3/uL RBC 4.33 L (4.60-5.80) X10*6/uL Hgb 13.0 L (14.0-18.0) g/dl Hct 37.7 L (42.0-52.0) % MCV 87.1 (80.0-98.0) fL MCH 30.0 (27.0-33.0) pg MCHC 34.5 (31.0-36.0) g/dl RDW 13.1 (11.0-16.0) % Plt Count 191 (160-400) X10*3/uL MPV 10.6 (9.4-12.4) fL Immature Gran % (Auto) 0.4 (0.0-0.4) % Neut % (Auto) 72.1 (45-73) % Lymph % (Auto) 14.8 L (20-40) % [place] % (Auto) 12.5 H (2-11) % Eos % (Auto) 0.0 (0-4) % Baso % (Auto) 0.2 (0-2) % Lymph # (Auto) 1.7 (1.2-4.9) X10*3/uL [place] # (Auto) 1.4 H (0.1-1.2) X10*3/uL Eos # (Auto) 0.0 (0.0-0.4) X10*3/uL Baso # (Auto) 0.0 (0.0-0.2) X10*3/uL Abs Immat Gran (auto) 0.04 H (0.00-0.03) X10*3/uL Absolute Neuts (auto) 8.2 (2.0-8.3) x10*3/uL Absolute Nucleated RBC 0.000 (0.0-0.012) X10*3/uL Nucleated RBC % (auto) 0.0 (0.0-0.2) /100WBC ESR (0-15) MM/HR PT 13.1 (11.1-13.3) SEC INR 1.1 (0.9-1.1) Sodium 137 (135-145) mmol/L Potassium 4.2 (3.3-5.1) mmol/L Chloride 106 (96-108) mmol/L Carbon Dioxide 23 (22-29) mmol/L Anion Gap 12 (12-20) BUN 15 (9-16) mg/dL Creatinine 0.81 (0.5-1.4) mg/dL Estim Creat Clear Calc 129.1 Estimated GFR > 60 Random Glucose 107 (60-115) mg/dL Lactic Acid (0.5-2.0) mmol/L Calcium 10.2 D (8.4-10.2) mg/dL Magnesium 2.1 (1.6-2.6) mg/dL Total Bilirubin 1.2 H (0.0-1.0) mg/dL AST 31 (5-37) U/L ALT 13 (0-40) U/L Alkaline Phosphatase 75 (39-117) U/L C-Reactive Protein (< or = 0.50) mg/dL Total Protein 7.5 (6.5-8.0) g/dL Albumin 4.4 (3.5-5.0) g/dL 05/25/23 05/25/23 05/25/23 Range/Units 09:54 10:03 10:03 WBC (4.8-10.8) X10*3/uL RBC (4.60-5.80) X10*6/uL Hgb (14.0-18.0) g/dl Hct (42.0-52.0) % MCV (80.0-98.0) fL MCH (27.0-33.0) pg MCHC (31.0-36.0) g/dl RDW (11.0-16.0) % Plt Count (160-400) X10*3/uL MPV (9.4-12.4) fL Immature Gran % (Auto) (0.0-0.4) % Neut % (Auto) (45-73) % Lymph % (Auto) (20-40) % [place] % (Auto) (2-11) % Eos % (Auto) (0-4) % Baso % (Auto) (0-2) % Lymph # (Auto) (1.2-4.9) X10*3/uL [place] # (Auto) (0.1-1.2) X10*3/uL Eos # (Auto) (0.0-0.4) X10*3/uL Baso # (Auto) (0.0-0.2) X10*3/uL Abs Immat Gran (auto) (0.00-0.03) X10*3/uL Absolute Neuts (auto) (2.0-8.3) x10*3/uL Absolute Nucleated RBC (0.0-0.012) X10*3/uL Nucleated RBC % (auto) (0.0-0.2) /100WBC ESR 7 (0-15) MM/HR PT (11.1-13.3) SEC INR (0.9-1.1) Sodium (135-145) mmol/L Potassium (3.3-5.1) mmol/L Chloride (96-108) mmol/L Carbon Dioxide (22-29) mmol/L Anion Gap (12-20) BUN (9-16) mg/dL Creatinine (0.5-1.4) mg/dL Estim Creat Clear Calc Estimated GFR Random Glucose (60-115) mg/dL Lactic Acid 0.6 (0.5-2.0) mmol/L Calcium (8.4-10.2) mg/dL Magnesium (1.6-2.6) mg/dL Total Bilirubin (0.0-1.0) mg/dL AST (5-37) U/L ALT (0-40) U/L Alkaline Phosphatase (39-117) U/L C-Reactive Protein 8.16 H (< or = 0.50) mg/dL Total Protein (6.5-8.0) g/dL Albumin (3.5-5.0) g/dL Independent Interpretation I performed an independent interpretation of an: Plain X-Ray Radiology Impression Discussion of test interpretation with radiology: I have reviewed the radiologist's reading. Radiologist Impression: XR knee LT 4V IMPRESSION: 1.? 2.5 cm triangular radiopaque density along the posterior margin of the lateral femoral tibial compartment is nonspecific, but was not seen previously and has the appearance of a radiopaque foreign body, not seen on the 2020 study. Correlate with physical exam and patient history. 2.? Small suprapatellar joint effusion without underlying osseous abnormality. CT knee LT wo IV con IMPRESSION: 1. Metallic foreign body measuring up to 2.0 cm within the posterior joint space in the region of the posteriolateral meniscal body adjacent to the lateral tibial plateau. Findings are consistent with a metallic foreign body. 2. No acute fracture or dislocation. No evidence of avascular necrosis. 3. Moderate knee joint effusion. Core Measures AMI core measures followed: Yes Measure exclusions: not indicated Critical Care Time Critical Care Time Critical Care Time: Yes Total Critical Care Time: 45 Attestation: I attest to this time spent taking care of the patient, obtaining history, physical, reviewing labs, imaging, speaking to my attending, speaking to specialist. Discharge Plan Discharge Clinical Impression: Foreign body of knee Patient Disposition: Admitted As Inpatient Instructions: Abrasion (ED) Additional Instructions: The x-ray left knee showed a retained foreign body. You have been prescribed antibiotics for this. Take these as directed, do not skip any doses, do not finish them early. You have been provided a referral to Orthopedics. YOU NEED TO FOLLOW-UP WITH THEM, CALL THEM TO MAKE AN APPOINTMENT. THIS MAY REQUIRE SURGERY. Take your medications as prescribed. If you were prescribed antibiotics today, it is important that you take your medication to their entirety, do not skip any doses, do not finish them early. Follow-up with your primary care provider this week. Return to the emergency department with new or worsening symptoms. Such as fevers, chills, chest pain, shortness of breath, nausea, vomiting, dizziness, headache, vision changes, lethargy In case of emergency call 911 Prescriptions: New doxycycline hyclate 100 mg capsule 100 mg PO BID 10 Days Qty: 20 0RF cephalexin 500 mg tablet 500 mg PO Q6H 10 Days Qty: 40 0RF No Action dexamethasone 4 mg tablet 4 mg PO BID Qty: 5 0RF oxycodone 5 mg tablet 5 mg PO Q6H PRN (Reason: pain (scale score 7-10)) Qty: 12 0RF Rx Instructions: Partial Fill upon patient request. Referrals: [facility] [place] [facility] [Provider Group] [facility] [place] [facility] [place] Group] Stand Alone Forms: Work/School Release
[2023-05-25] MEDS: Ketorolac Tromethamine 15 MG/ML VIAL 30 MG IM (08:01)
[2023-05-25] MEDS: Diphth,Pertus(ACell),Tet Adult 0.5 ML SYRINGE IM (08:01)
[2023-05-25 08:37] LABS: MANUAL DIFF FLAG NO
[2023-05-25 08:39] LABS: Basophils Percent Auto 0.2 % (0-2); Hematocrit 37.7 % (42.0-52.0); Imm Gran Abs Auto 0.04 X10*3/uL (0.00-0.03); Imm Gran Pct Auto 0.4 % (0.0-0.4); Lymphocytes Absolute Auto 1.7 X10*3/uL (1.2-4.9); Lymphocytes Percent Auto 14.8 % (20-40); Mean Corpuscular HGB Conc 34.5 g/dl (31.0-36.0); Mean Corpuscular Volume 87.1 fL (80.0-98.0); Mean Platelet Volume 10.6 fL (9.4-12.4); Monocytes Absolute Auto 1.4 X10*3/uL (0.1-1.2); Monocytes Percent Auto 12.5 % (2-11); Neutrophils Absolute Auto 8.2 x10*3/uL (2.0-8.3); Neutrophils Percent Auto 72.1 % (45-73); Platelet Count 191 X10*3/uL (160-400); Red Blood Count 4.33 X10*6/uL (4.60-5.80); Red Cell Distribution Width 13.1 % (11.0-16.0); White Blood Count 11.3 X10*3/uL (4.8-10.8)
[2023-05-25 08:43] LABS: INTERNATIONAL NORM RATIO 1.1 (0.9-1.1); Prothrombin Time 13.1 SEC (11.1-13.3)
[2023-05-25] MEDS: Piperacillin Sodium/Tazobactam 3.375 GM in 0.9 % Sodium Chloride 50 ML IV (08:53)
--- NOTE | 2023-05-25 08:56 | PC.NURSE ---
swelling noted to pt's left knee with approx 1 cm laceration. iv established and antibiotics infusing.
[2023-05-25 09:01] LABS: Alanine Aminotransferase 13 U/L (0-40); Albumin Level 4.4 g/dL (3.5-5.0); Alkaline Phosphatase 75 U/L (39-117); Anion Gap 12 (12-20); Aspartate Amino Transferase 31 U/L (5-37); Bilirubin Total 1.2 mg/dL (0.0-1.0); Blood Urea Nitrogen 15 mg/dL (9-16); Calcium 10.2 mg/dL (8.4-10.2); Carbon Dioxide 23 mmol/L (22-29); Chloride 106 mmol/L (96-108); Creatinine Clr Calc Pharmacy 129.1; Estimated Glomerular Filt Rate > 60; Glucose Random 107 mg/dL (60-115); Magnesium 2.1 mg/dL (1.6-2.6); Potassium 4.2 mmol/L (3.3-5.1); Sodium 137 mmol/L (135-145); Total Protein 7.5 g/dL (6.5-8.0)
[2023-05-25] MEDS: Morphine Sulfate 4 MG/ML CARTRIDGE IVPUSH ×2 (10:09→15:06)
--- NOTE | 2023-05-25 10:12 | PC.NURSE ---
blood cultures obtained, pt medicated per the mar for pain. call pulliam within reach. pt offering no other complaints at this time.
[2023-05-25 10:15] LABS: Lactic Acid 0.6 mmol/L (0.5-2.0)
[2023-05-25 10:24] LABS: C Reactive Protein 8.16 mg/dL (< or = 0.50)
[2023-05-25 10:57] LABS: Erythrocyte Sedimentation Rate 7 MM/HR (0-15)
--- NOTE | 2023-05-25 13:11 | P.HPOP_ITS ---
History of Present Illness History of Present Illness Date of Service: 05/25/23 Chief complaint: Lac on knee/swelling Narrative: Justino Lovelace is a 32 year old male who sustained a self inflicted accidental wound to his left knee. A box repairer penetrated his medial knee last night. He presented to the ED with pain and inability to ambulate. CT and plain radiographs showed a foreign body ( a sharp piecve of a box repairer presumably) in the posterolateral knee joint. He denies numbness/tingling Review of Systems Review of Systems: Yes all other systems are reviewed and are negative [facility] Social History Social History Smoked in Last 30 Days: Yes Advance Directives: No Meds Allergies Allergy/AdvReac Type Severity Reaction Status Date / Time Seasonal Allergies Allergy Mild Itchy Eyes Verified 01/02/23 17:14 tree nut [TREE NUT] Allergy Mild ITCHY Verified 01/02/23 17:14 THROAT Physical Exam Vital Signs: Vital Signs: Last Vital Signs Temp 98.8 F 05/25/23 10:06 Pulse 79 05/25/23 10:06 Resp 16 05/25/23 10:06 BP 117/73 05/25/23 10:06 Pulse Ox 99 05/25/23 10:06 O2 Del Method Room Air 05/25/23 10:06 BMI result Body Mass Index 27.4 Const: General: cooperative, healthy appearing, no acute distress, well developed and alert HEENT: Head: Yes normal to inspection, Yes normocephalic and Yes atraumatic Mouth: moist mucous membranes Eyes: General: appearance normal, both eyes and all related structures EOM: EOMs intact bilaterally Chest: Other: no audible wheezing. Resp: Other: No audible wheezing Effort & Inspection: normal respiratory effort Cardio: Other: Radial pulse palpable with no rythmic abnormalities Back/Spine/Pelvis: Cervical Spine: normal cervical lordosis Skin: General skin exam: no rashes or lesions noted Neuro: General: no focal motor deficits Extrem: Other: left knee with medial 1 cm wound with severe pain on passive nad active motion DP+2 No pulsatile mass politeal fossa SILT Firing ehl/ta/gc Psych: Appearance: grossly normal and well kempt Mental Status: mental status grossly normal Speech and movement: Normal speech and movement present Affect: normal affect Attitude: cooperative Results Labs 05/25/23 08:32 05/25/23 08:32 Labs: Abnormal lab results 05/25/23 05/25/23 05/25/23 Range/Units 08:32 08:32 10:03 WBC 11.3 H (4.8-10.8) X10*3/uL RBC 4.33 L (4.60-5.80) X10*6/uL Hgb 13.0 L (14.0-18.0) g/dl Hct 37.7 L (42.0-52.0) % Lymph % (Auto) 14.8 L (20-40) % [place] % (Auto) 12.5 H (2-11) % [place] # (Auto) 1.4 H (0.1-1.2) X10*3/uL Abs Immat Gran (auto) 0.04 H (0.00-0.03) X10*3/uL Total Bilirubin 1.2 H (0.0-1.0) mg/dL C-Reactive Protein 8.16 H (< or = 0.50) mg/dL H & H 05/25/23 Range/Units 08:32 Hgb 13.0 L (14.0-18.0) g/dl Hct 37.7 L (42.0-52.0) % Coagulation 05/25/23 Range/Units 08:32 INR 1.1 (0.9-1.1) All other labs normal. Diagnostic results Knee CT: image reviewed (Metallic foreign body measuring up to 2.0 cm within the posterior joint space in the region of the posteriolateral meniscal body adjacent to the lateral tibial plateau. Findings are consistent with a metallic foreign body. 2. No acute fracture or dislocation. No evidence of avascular necrosis. 3. Mo) Assessment and Plan (1) Foreign body of knee: Status: Acute Plan Sharp foreign body in the knee joint likely anthough cannotu rule our posterior extra-articular. It is sharp and intra-articular and I recommend urgent removal with knee arthroscopy. I discussed this with the patient. It is possible that I would have to open posterolaterally and as such I discussed this risk of nerve/vascular injury. I discussed the additional risks benefits and alternatives including but not limited to the risk of pain, infection, stiffness, need for further surgery as well as potential medical complications such as blood clots, pulmonary embolism and cardiac complications. He expressed understanding. Time Spent With Patient Time: Total time managing care of this patient today _20___ minutes. Quality Stroke Does the patient have a stroke diagnosis?: No VTE Prior VTE?: No VTE Risk Level:: Surgical - low VTE Device Contraindication: N/A - Device Ordered VTE Drug Contraindication: N/A - Med Ordered Procedures Date of Service Date of Service: 05/25/23
--- NOTE | 2023-05-25 13:33 | PHA.MEDREC ---
Pharmacy Consult ? Medication Reconciliation Pharmacy has completed the medication reconciliation. Patient reported medications. Report he is suppose to be on sertraline 100 mg daily but has has not picked it up from the pharmacy. Last filled in november per claim history. Patient is on methadone at [facility] on [facility], clinic is currently close. RN will need to call in the more to confirm dose. Estefany Varghese, GeorgeD
--- NOTE | 2023-05-25 16:26 | P.CONAN_ITS ---
HPI - Anesthesia Eval Consult details Narrative: Left knee foreign body PMFSH Active Problems Active Problems: All Active Problems (Updated 05/25/23 @ 08:59 by SURJIT Sanchez) Foreign body of knee (Acute) Past Medical History Medical History Opiate addiction Smoker Family History Family history of problems with anesthesia: No Surgical History History of Problems with Anesthesia: No Social History Social History Smoked in Last 30 Days: Yes Advance Directives: No Meds Allergies Allergy/AdvReac Type Severity Reaction Status Date / Time Seasonal Allergies Allergy Mild Itchy Eyes Verified 01/02/23 17:14 tree nut [TREE NUT] Allergy Mild ITCHY Verified 01/02/23 17:14 THROAT Home Medications Medication Instructions Recorded Confirmed Last Taken Type clonidine HCl 0.1 mg tablet 0.1 - 0.2 mg PO BEDTIME PRN 05/25/23 05/25/23 Unknown History insomnia methadone 10 mg/mL oral mg PO DAILY 05/25/23 Unknown History concentrate (Methadose) Exam Exam Date and Time: May 25, 2023 1626 Height,Weight and Vital Signs: Height 5 ft 6 in Weight 77.111 kg Last Vital Signs Temp 98.4 F 05/25/23 15:08 Pulse 83 05/25/23 15:08 Resp 18 05/25/23 15:08 BP 111/69 05/25/23 15:08 Pulse Ox 97 05/25/23 15:08 O2 Del Method Room Air 05/25/23 15:08 Pertinent Lab Results Pertinent Lab Results: Laboratory Tests 05/25/23 05/25/23 05/25/23 08:32 08:32 08:32 WBC 11.3 H RBC 4.33 L Hgb 13.0 L Hct 37.7 L MCV 87.1 MCH 30.0 MCHC 34.5 RDW 13.1 Plt Count 191 MPV 10.6 Immature Gran % (Auto) 0.4 Neut % (Auto) 72.1 Lymph % (Auto) 14.8 L [place] % (Auto) 12.5 H Eos % (Auto) 0.0 Baso % (Auto) 0.2 Lymph # (Auto) 1.7 [place] # (Auto) 1.4 H Eos # (Auto) 0.0 Baso # (Auto) 0.0 Abs Immat Gran (auto) 0.04 H Absolute Neuts (auto) 8.2 Absolute Nucleated RBC 0.000 Nucleated RBC % (auto) 0.0 ESR PT 13.1 INR 1.1 Sodium 137 Potassium 4.2 Chloride 106 Carbon Dioxide 23 Anion Gap 12 BUN 15 Creatinine 0.81 Estim Creat Clear Calc 129.1 Estimated GFR > 60 Random Glucose 107 Lactic Acid Calcium 10.2 D Magnesium 2.1 Total Bilirubin 1.2 H AST 31 ALT 13 Alkaline Phosphatase 75 C-Reactive Protein Total Protein 7.5 Albumin 4.4 05/25/23 05/25/23 05/25/23 09:54 10:03 10:03 WBC RBC Hgb Hct MCV MCH MCHC RDW Plt Count MPV Immature Gran % (Auto) Neut % (Auto) Lymph % (Auto) [place] % (Auto) Eos % (Auto) Baso % (Auto) Lymph # (Auto) [place] # (Auto) Eos # (Auto) Baso # (Auto) Abs Immat Gran (auto) Absolute Neuts (auto) Absolute Nucleated RBC Nucleated RBC % (auto) ESR 7 PT INR Sodium Potassium Chloride Carbon Dioxide Anion Gap BUN Creatinine Estim Creat Clear Calc Estimated GFR Random Glucose Lactic Acid 0.6 Calcium Magnesium Total Bilirubin AST ALT Alkaline Phosphatase C-Reactive Protein 8.16 H Total Protein Albumin Airway Mallampati Class: II TM Dist: >3cm Neck ROM: Full Loose/Missing/Broken Teeth: No Heart: RRR Lungs: CTA Assessment and Plan Assessment Anesthesia Assessment: Anesthesia Plan Discussed, Smoking Cess. Discussed and Chart Reviewed Final Anesthetic Review Family History of Problems with Anesthesia: No History of Problems with Anesthesia: No NPO: Yes ASA Class: III and Emergency Final Preanesthetic Review: No Changes in Pt Med Stat, Meds/Allgs Chart Reviewed, Consent Obtained/Reviewed and Anes Risks/Benef Reviewed Patient Risk: Intermediate Procedure Risk: Intermediate Anesthetic Plan Anesthetic Plan: GA Disposition: Standard PACU
--- NOTE | 2023-05-25 17:41 | PM.OP ---
Brief Operative Note Date of Service: 05/25/23 Pre-op diagnosis: foreign body left knee Post-op diagnosis: same Procedure: Arthroscopic removal of foreign body, left knee with lavage. Surgeon: Hilario Raza MD Anesthesia: GETA and local Was an Waste Treatment Operator used for this Procedure?: No Estimated blood loss (mL): 5 Tourniquet time (min): 25 Pathology: other Condition: stable Disposition: PACU
[2023-05-25] MEDS: ceFAZolin Sodium/Dextrose,Iso 2 GM/50 ML PIGGYBACK IV (18:03)
[2023-05-25] MEDS: HYDROmorphone HCl 0.5 MG/0.5 ML SYRINGE IVPUSH ×2 (18:10→18:20)
[2023-05-25] MEDS: Docusate Sodium 100 MG CAPSULE PO (20:46)
[2023-05-25] MEDS: Celecoxib 200 MG CAPSULE PO (20:46)
[2023-05-25] MEDS: Lactated Ringers 1,000 ML 100 ML IVCONT (20:46)
[2023-05-25] MEDS: 0.9 % Sodium Chloride Flush 3 ML SYRINGE IVFLUSH (20:47)
[2023-05-25] MEDS: Acetaminophen 325 MG TABLET 650 MG PO (21:30)
[2023-05-25] MEDS: oxyCODONE HCl Immed Release 5 MG TABLET PO (21:31)
[2023-05-25] MEDS: cloNIDine HCL 0.1 MG TABLET PO (21:31)
[2023-05-25] MEDS: Nicotine 21 MG PATCH.TD24 TRANSDERMA (22:09)
[2023-05-26] MEDS: ceFAZolin Sodium/Dextrose,Iso 2 GM/50 ML PIGGYBACK IV (03:12)
[2023-05-26] MEDS: Lactated Ringers 1,000 ML 100 ML IVCONT (03:12)
[2023-05-26 03:13] VITALS: BP 111/59; PULSE 63; RESP 17; TEMP 36.2; O2SAT 96
[2023-05-26 05:37] LABS: MANUAL DIFF FLAG NO
[2023-05-26 05:41] LABS: Basophils Percent Auto 0.1 % (0-2); Hematocrit 34.4 % (42.0-52.0); Hemoglobin 11.2 g/dl (14.0-18.0); Imm Gran Abs Auto 0.06 X10*3/uL (0.00-0.03); Imm Gran Pct Auto 0.5 % (0.0-0.4); Lymphocytes Absolute Auto 1.3 X10*3/uL (1.2-4.9); Lymphocytes Percent Auto 11.3 % (20-40); Mean Corpuscular HGB Conc 32.6 g/dl (31.0-36.0); Mean Corpuscular Hemoglobin 29.6 pg (27.0-33.0); Mean Corpuscular Volume 90.8 fL (80.0-98.0); Monocytes Absolute Auto 0.9 X10*3/uL (0.1-1.2); Monocytes Percent Auto 8.1 % (2-11); Neutrophils Absolute Auto 8.9 x10*3/uL (2.0-8.3); Platelet Count 171 X10*3/uL (160-400); Red Blood Count 3.79 X10*6/uL (4.60-5.80); Red Cell Distribution Width 13.2 % (11.0-16.0); White Blood Count 11.1 X10*3/uL (4.8-10.8)
[2023-05-26 06:02] LABS: Anion Gap 9 (12-20); Blood Urea Nitrogen 12 mg/dL (9-16); Calcium 9.6 mg/dL (8.4-10.2); Carbon Dioxide 26 mmol/L (22-29); Chloride 106 mmol/L (96-108); Creatinine Clr Calc Pharmacy 124.1; Estimated Glomerular Filt Rate > 60; Glucose Fasting 132 mg/dL (60-99); Sodium 137 mmol/L (135-145)
[2023-05-26 06:59] VITALS: BP 112/67; PULSE 63; RESP 16; TEMP 36.7; O2SAT 97
[2023-05-26] MEDS: Docusate Sodium 100 MG CAPSULE PO (08:34)
[2023-05-26] MEDS: oxyCODONE HCl Immed Release 5 MG TABLET PO (08:34)
[2023-05-26] MEDS: Celecoxib 200 MG CAPSULE PO (08:34)
[2023-05-26] MEDS: Nicotine 21 MG PATCH.TD24 TRANSDERMA (08:34)
--- NOTE | 2023-05-26 09:06 | PM.DS ---
DS: Providers Provider Date of Service: 05/26/23 Date of admission: 05/25/23 16:16 Primary care physician: None Physician Consults: 05/25/23 09:39 Consult to Orthopedics Stat Consulting Provider: [facility] Reason for consultation: fb in knee DS: Diagnosis Discharge Diagnosis (1) Foreign body of knee: Status: Acute DS: Summary Hospital Course Hospital Course: 32 year old male who sustained a self inflicted accidental wound to his left knee. A box puller penetrated his medial knee last night. He presented to the ED with pain and inability to ambulate. CT and plain radiographs showed a foreign body ( a sharp piece of a box puller presumably) in the posterolateral knee joint. He denies numbness/tingling He was admitted to the hospital and underwent Arthroscopic lavage of the left knee with removal foreign body. He was brought to the recovery room and back to the floor to recover. During his stay his Vitals were stable, afebrile. He received a course of abx and will be dc home. Time Spent with Patient Time attestation: Total time managing care of this patient today ____ minutes. Discharge coordination time: Less than 30 minutes Quality: Safe Use of Opioids Does Pt have an Active Cancer Diagnosis on the Problem List?: No Quality: Stroke Does the patient have a stroke diagnosis?: No Physical Exam Vital Signs: Vital Signs: Last Vital Signs Temp 98.1 F 05/26/23 06:59 Pulse 63 05/26/23 06:59 Resp 16 05/26/23 06:59 BP 112/67 05/26/23 06:59 Pulse Ox 97 05/26/23 06:59 O2 Del Method Room Air 05/26/23 06:59 O2 Flow Rate 2 05/25/23 19:00 BMI result Body Mass Index 29.4 Const: General: cooperative, healthy appearing, no acute distress, well developed and alert HEENT: Head: Yes normal to inspection, Yes normocephalic and Yes atraumatic Mouth: moist mucous membranes Eyes: General: appearance normal, both eyes and all related structures EOM: EOMs intact bilaterally Chest: Other: no audible wheezing. Resp: Other: No audible wheezing Effort & Inspection: normal respiratory effort Cardio: Other: Radial pulse palpable with no rythmic abnormalities Back/Spine/Pelvis: Cervical Spine: normal cervical lordosis Skin: General skin exam: no rashes or lesions noted Neuro: General: no focal motor deficits Extrem: Other: left knee incidion clean dry and intact DP+2 No pulsatile mass politeal fossa SILT Firing ehl/ta/gc Psych: Appearance: grossly normal and well kempt Mental Status: mental status grossly normal Speech and movement: Normal speech and movement present Affect: normal affect Attitude: cooperative DS: Data Data Completed and Pending Pending studies at discharge: Pending at discharge 05/25/23 17:17 Surgical [PTH] Routine Labs on day of discharge: Laboratory Results - last 24 hr 05/25/23 05/25/23 05/25/23 09:54 10:03 10:03 WBC RBC Hgb Hct MCV MCH MCHC RDW Plt Count MPV Immature Gran % (Auto) Neut % (Auto) Lymph % (Auto) [facility] % (Auto) Eos % (Auto) Baso % (Auto) Lymph # (Auto) [facility] [facility] # (Auto) Eos # (Auto) Baso # (Auto) Abs Immat Gran (auto) Absolute Neuts (auto) Absolute Nucleated RBC Nucleated RBC % (auto) ESR 7 Sodium Potassium Chloride Carbon Dioxide Anion Gap BUN Creatinine Estim Creat Clear Calc Estimated GFR Fasting Glucose Lactic Acid 0.6 Calcium C-Reactive Protein 8.16 H 05/26/23 05/26/23 05:07 05:07 WBC 11.1 H RBC 3.79 L Hgb 11.2 L Hct 34.4 L MCV 90.8 MCH 29.6 MCHC 32.6 RDW 13.2 Plt Count 171 MPV 11.0 Immature Gran % (Auto) 0.5 H Neut % (Auto) 80.0 H Lymph % (Auto) 11.[address] [place] % (Auto) 8.1 Eos % (Auto) 0.0 Baso % (Auto) 0.1 Lymph # (Auto) 1.3 [facility] [facility] # (Auto) 0.9 Eos # (Auto) 0.0 Baso # (Auto) 0.0 Abs Immat Gran (auto) 0.06 H Absolute Neuts (auto) 8.9 H Absolute Nucleated RBC 0.000 Nucleated RBC % (auto) 0.0 ESR Sodium 137 Potassium 4.0 Chloride 106 Carbon Dioxide 26 Anion Gap 9 L BUN 12 Creatinine 0.87 Estim Creat Clear Calc 124.1 Estimated GFR > 60 Fasting Glucose 132 H Lactic Acid Calcium 9.6 C-Reactive Protein Discharge Plan Discharge Anticipated Discharge Date/Time: 05/26/23 09:02 Patient Disposition: Home, Self-Care Discharge Diagnosis: Left knee FB Referrals: [facility] [place] [facility] [Provider Group] [facility] [Provider Group] Physician,None [Primary Care Provider] - 1 Week Discharge Medications: New doxycycline hyclate 100 mg capsule 100 mg PO BID 10 Days Qty: 20 0RF cephalexin 500 mg tablet 500 mg PO Q6H 10 Days Qty: 40 0RF celecoxib 200 mg Capsule 200 mg PO BID 30 Days Qty: 60 0RF acetaminophen 325 mg Tablet 650 mg PO Q6H PRN (Reason: Pain, Mild (Pain Scale 1-3)) 30 Days Qty: 240 0RF oxycodone 5 mg Tablet 5 mg PO Q4H PRN (Reason: Pain, Moderate(Pain Scale 4-6)) 7 Days Qty: 42 0RF Rx Instructions: Partial Fill upon patient request. Continued clonidine HCl 0.1 mg tablet 0.1 - 0.2 mg PO BEDTIME PRN (Reason: insomnia) methadone [Methadose] 10 mg/mL Concentrate PO DAILY Discharge Orders: Discharge Order (Routine); Ordered 05/26/23 Ordered By: J Carlos Montano Diet: Regular diet Activity on Discharge: Walk with crutches Stand Alone Forms: Patient Portal Discharge page, Work/School Release Activity Restrictions/Additional Instructions: The x-ray left knee showed a retained foreign body. You have been prescribed antibiotics for this. Take these as directed, do not skip any doses, do not finish them early. Follow up with orthopedics in 1 week Take your medications as prescribed. You were prescribed antibiotics today, it is important that you take your medication to their entirety, do not skip any doses, do not finish them early. Return to the emergency department with new or worsening symptoms. Such as fevers, chills, chest pain, shortness of breath, nausea, vomiting, dizziness, headache, vision changes, lethargy In case of emergency call 911 Care Plan Goals: Restore function of joint Health Concerns: none Plan of Treatment: -Weight bear as tolerated -Elevate above heart level to help reduce swelling -Perform ankle pumps to help circulation in the leg -Ice the knee throughout the day for the next 72 hours -Keep the dressing clean , dry and intact. -Ok to remove the Shun wrap and apply bandaids over the incisions after 3 days -Follow up with Orthopedics in 1 week Assessment: as above Patient Instructions: Abrasion (ED)
--- NOTE | 2023-05-26 11:33 | MHC.CM.PN ---
Patient lives with Family. He is independent with all functional mobility baseline. He is discharge today self care. His will provide transportation home.
--- NOTE | 2023-06-20 14:26 | W.PM.OPN ---
Operative Note Operative Note Date of Service: 05/25/23 Narrative: Date of Service: 05/25/23 Pre-op diagnosis: foreign body left knee Post-op diagnosis: same Procedure: Arthroscopic removal of foreign body, left knee with lavage. Surgeon: Hilario Raza MD Anesthesia: GETA and local Was an Electrical Solderer used for this Procedure?: No Estimated blood loss (mL): 5 Tourniquet time (min): 25 Pathology: other Condition: stable Disposition: PACU Procedure in detail. Patient was brought to the operating room placed supine on the arthroscopic table and prepped and draped in standard sterile fashion. A time-out was called to identify proper site proper procedure proper surgeon and IV antibiotics per weight were administered. I began by exsanguinating the limb and insufflating tourniquet to 300 mm Hg. Then made a standard anterolateral stab incision. knee was insufflated with water and 30 degree arthroscope was placed. The knee was in pristine condition except for the medial meniscus and capsule. There was evidence of acute trauma with a radial tear of the superior 50% of the medial meniscus. I explored the medial and anterior compartment without finding any foreign object but then in the posterolateral recess under the meniscus was a shark tip of a jukebox route driver. This was removed with a grasper without damaging cartilage or meniscus. Once this was done I lavaged the joint for 5 minutes and then debrided the superior aspect of the medial meniscus and capsule lightly with a shaver and cautery Wand. I then removed all instrumentation and closed the portals with skin glue. I irrigated from the outside [place] over the stab incision. There was no joint fluid extravasating from this incision and it was closed with nylon. Patient was then placed in sterile dressing extubated brought recovery room stable condition. There were no known complications.
== END 2023-05-26 10:57 | disposition home or self-care (01) | DRG 384 ==
LOC: HO.ED 15:16 → HO.EDOVER 16:20 → HO.S3 17:57
PROVIDERS: Orthopaedic Surgery; Physician Assistant; Admitting Provider Physician Assistant; Emergency Provider Student in an Organized Health Care Education/Training Program; Visit Provider Physician Assistant
PROC: 0JCP3ZZ Extirpation of Matter from Left Lower Leg Subcutaneous Tissue and Fascia, Percutaneous Approach (ICD-10-PCS; CPT 29870; principal; 2023-05-25 17:00)
DX: S81.022A Laceration with foreign body, left knee, initial encounter (principal); F11.20 Opioid dependence, uncomplicated; W27.8XXA Contact with other nonpowered hand tool, initial encounter; F17.210 Nicotine dependence, cigarettes, uncomplicated; Z71.6 Tobacco abuse counseling; Z79.899 Other long term (current) drug therapy
CPT/HCPCS: 29874; 36415; 73564; 73700; 80048; 80053; 83605; 83735; 85025; 85610; 85652; 86140; 87040; 88300; 90715; 97161; 99221; 99285; J0171; J0690; J1100; J1170; J1885; J2270; J2405; J2543; J2795

== ENCOUNTER → 2023-05-25 07:18 | Outpatient (BNV) | payer MEDICAID, SELFPAY | PROVIDERS: Emergency Provider Student in an Organized Health Care Education/Training Program; Visit Provider Orthopaedic Surgery | DX: S80.252A Superficial foreign body, left knee, initial encounter (principal) | CPT/HCPCS: 29874; 99231; 99238 ==

== ENCOUNTER 2024-02-16 10:15 | Emergency (ER) | payer MEDICAID, SELFPAY ==
--- NOTE | 2024-02-16 10:19 | ED_ITS ---
HPI - Overdose General Chief Complaint: Overdose Stated Complaint: overdose, narcan given Source: patient Mode of arrival: EMS Limitations: no limitations History of Present Illness ED Provider: HAFSA CHRISTENSEN Narrative: 33 yo male with PMH of opiate use disorder just tapered off methadone, asthma smoked something with someone then was found by girlfriend in bed. PD found him agonal gave 4mg and bagged him. EMS arrived and was waking up no need for additional narcan. complaint: accidental overdose Onset (ago): minute(s) ([employer]) Timing confirmed by: family member Context: Accidental Overdose: other (was tired after work saw some friends on the street smoked a joint ) Treatments Prior to Arrival: oxygen (bagged by PD) and narcan (4mg IN narcan) Related Data Home Medications ?Medication ?Instructions ?Recorded ?Confirmed clonidine HCl 0.1 mg tablet 0.1 - 0.2 mg PO BEDTIME PRN 05/25/23 05/25/23 insomnia methadone 10 mg/mL oral mg PO DAILY 05/25/23 concentrate (Methadose) Previous Rx's ?Medication ?Instructions ?Recorded cephalexin 500 mg tablet 500 mg PO Q6H 10 days #40 tabs 05/25/23 doxycycline hyclate 100 mg capsule 100 mg PO BID 10 days #20 caps 05/25/23 acetaminophen 325 mg tablet 650 mg (2 x 325 mg) PO Q6H PRN 05/26/23 Pain, Mild (Pain Scale 1-3) 30 days #240 tabs celecoxib 200 mg capsule 200 mg PO BID 30 days #60 caps 05/26/23 oxycodone 5 mg tablet 5 mg PO Q4H PRN Pain, 05/26/23 Moderate(Pain Scale 4-6) 7 days #42 tabs Allergies Allergy/AdvReac Type Severity Reaction Status Date / Time Seasonal Allergies Allergy Mild Itchy Eyes Verified 02/16/24 10:26 tree nut [TREE NUT] Allergy Mild ITCHY Verified 02/16/24 10:26 THROAT Review of Systems Review of Systems: Constitutional : No Fever, No Chills, No Fatigue ENT/Mouth : No sore throat, No Rhinorrhea Eyes: No Eye Pain, No Swelling, No Redness Cardiovascular : No Chest Pain, No SOB, No Dyspnea on Exertion Respiratory : No Cough, No Sputum Gastrointestinal : No Nausea, No Vomiting, No Diarrhea, No abdominal Pain Genitourinary : No Dysuria, No Urinary Frequency, No Hematuria, Musculoskeletal : No joint pain, No Myalgias, No Joint Swelling Skin : No Skin Lesions, No rash Neuro : No Weakness, No Numbness, No Dizziness, no Headache Psych : No Anxiety/Panic, No Depression, no SI/HI All other systems reviewed and are negative [facility] Past Medical History Attestation statement: The following information was validated with the patient. Source: old records reviewed Medical History Opiate addiction Smoker Social History Social History Household Members: Family Housing: Apartment Do you presently have visiting nurse or other home services: No Patient Tobacco Use Status: Current everyday Tobacco user Tobacco use type: Cigarette Cigarettes Per Day: 10 Years Smoked: 15 Smoked in Last 30 Days: Yes Use of substances other than those prescribed or required for medical reasons: No Advance Directives: No Advance Directives Information Provided: Yes service: No Physical Exam Vital Signs: Vital Signs: Last Vital Signs Temp 97.9 F 02/16/24 10:24 Pulse 73 02/16/24 10:24 Resp 16 02/16/24 10:24 BP 140/89 H 02/16/24 10:24 Pulse Ox 98 02/16/24 10:28 O2 Del Method Room Air 02/16/24 10:28 BMI result Body Mass Index 21.0 Appearance: Alert. Oriented X3. No acute distress. Eyes: Pupils equal, round and reactive to light. ENT: Pharynx normal. atraumatic Neck: Normal inspection. Neck supple. CVS: Normal heart rate and rhythm. Pulses normal. Respiratory: No respiratory distress. Breath sounds normal. Abdomen: Soft and nontender. Skin: Skin warm and dry. Normal skin color. Extremities: No lower extremity edema. Neuro: Oriented X 3. No motor deficit. No sensory deficit. CN2-12 intact Medical Decision Making Medical Decision Making MDM Narrative: 33 yo male with opiate abuse in past but off of methadone who was walking outside and smoked a joint with a friend then woke up in bed after being bagged and overdose recieved 4mg narcan - he does not want SUDE eval, no detox will evaluate and order narcan to go. No signs of trauma, clear lungs has no complaints. Differential Diagnosis Differential Diagnoses: The differential diagnosis associated with the presentation includes opiate overdose Admission/Observation Consideration of admission/observation: Escalation of care including admission/observation considered stable for DC wants to leave no need for repeat narcan observed 1.5 hours stable for DC Independent Historian Clinical information obtained from an independent historian. History obtained from or confirmed by: EMS External Record Review External record reviewed: Inpatient record Prescription Management I considered prescription management with: Other (narcan to go) Discharge Plan Discharge Clinical Impression: Drug overdose Patient Disposition: Home, Self-Care Instructions: Adult Overdose (ED) Additional Instructions: carry narcan with you at all times return for worsening symptoms or pain Prescriptions: No Action doxycycline hyclate 100 mg capsule 100 mg PO BID 10 Days Qty: 20 0RF cephalexin 500 mg tablet 500 mg PO Q6H 10 Days Qty: 40 0RF clonidine HCl 0.1 mg tablet 0.1 - 0.2 mg PO BEDTIME PRN (Reason: insomnia) methadone [Methadose] 10 mg/mL Concentrate PO DAILY celecoxib 200 mg Capsule 200 mg PO BID 30 Days Qty: 60 0RF acetaminophen 325 mg Tablet 650 mg PO Q6H PRN (Reason: Pain, Mild (Pain Scale 1-3)) 30 Days Qty: 240 0RF oxycodone 5 mg Tablet 5 mg PO Q4H PRN (Reason: Pain, Moderate(Pain Scale 4-6)) 7 Days Qty: 42 0RF Rx Instructions: Partial Fill upon patient request. Print Language: Faroese
[2024-02-16 10:24] VITALS: BP 140/89; BP 144/88; PULSE 73; PULSE 90; RESP 16; TEMP 36.6; O2SAT 98; BMI 21.0
[2024-02-16 10:28] VITALS: O2SAT 98
--- NOTE | 2024-02-16 10:38 | PC.NURSE ---
Pt changed over by security, belongings in . G/F to bedside after being checked by security
--- NOTE | 2024-02-16 12:01 | HO.SUDE ---
Pt declined SUDE.
[2024-02-16] MEDS: Naloxone HCl Nasal TAKE HOME 4 MG SPRAY 8 MG NOSTRILALT (12:08)
--- NOTE | 2024-02-16 12:15 | PC.NURSE ---
nasal narcan provided, pt wishes to give urine sample at this time- MD notified, UDS ordered
[2024-02-16 12:49] LABS: Amphetamine Screen Urine Not Detected (Not Detect); Barbiturates, Urine Not Detected (Not Detect); Benzodiazepines Screen Urine Not Detected (Not Detect); Buprenorphine Scr Not Detected (Not Detect); Cannabinoid Screen Urine POSITIVE (Not Detect); Cocaine Screen Urine Not Detected (Not Detect); Fentanyl, urine POSITIVE (Not Detect); Methadone Screen, Urine Not Detected (Not Detect); Opiate Screen Urine POSITIVE (Not Detect); Oxycodone Screen Urine Not Detected (Not Detect); Phencyclidine Screen Urine Not Detected (Not Detect)
[2024-02-16 12:59] VITALS: BP 140/89; PULSE 73; RESP 16; TEMP 36.9; O2SAT 98
== END 2024-02-16 13:01 | disposition home or self-care (01) ==
PROVIDERS: Emergency Provider Emergency Medicine
DX: T50.991A Poisoning by other drugs, medicaments and biological substances, accidental (unintentional), initial encounter (principal); Y92.9 Unspecified place or not applicable
CPT/HCPCS: 80307; 99285

== ENCOUNTER 2024-07-09 14:52 | Emergency (ER) | payer MEDICAID, SELFPAY ==
--- NOTE | ~2024-07-09 | XR_ITS ---
EXAMINATION: XR CHEST 4:03 PM CLINICAL INFORMATION: Cough COMPARISON: 12/01/2018 TECHNIQUE: Frontal view of the chest was obtained. FINDINGS: There are small areas of patchy airspace opacity in the midlung zones bilaterally. No pleural effusions are evident. The cardiomediastinal silhouette is normal. XR/XR chest 1V IMPRESSION: Small patchy areas of airspace opacity in the midlung zones bilaterally, suspicious for viral pneumonia or bronchopneumonia. Follow-up is recommended to confirm clearing. Electronically signed by: Richard Benjamin MD 07/09/2024 04:47 PM EDT
[2024-07-09 15:36] VITALS: BP 129/90; PULSE 77; RESP 20; TEMP 36.6; O2SAT 98; BMI 26.6
[2024-07-09 15:51] LABS: MANUAL DIFF FLAG NO
[2024-07-09 15:55] LABS: Basophils Percent Auto 0.5 % (0-2); Eosinophils Absolute Auto 0.1 X10*3/uL (0.0-0.4); Eosinophils Percent Auto 1.4 % (0-4); Hemoglobin 14.3 g/dl (14.0-18.0); Imm Gran Abs Auto 0.02 X10*3/uL (0.00-0.03); Imm Gran Pct Auto 0.3 % (0.0-0.4); Lymphocytes Absolute Auto 1.6 X10*3/uL (1.2-4.9); Lymphocytes Percent Auto 20.4 % (20-40); Mean Corpuscular Hemoglobin 30.8 pg (27.0-33.0); Mean Corpuscular Volume 90.5 fL (80.0-98.0); Mean Platelet Volume 9.4 fL (9.4-12.4); Monocytes Absolute Auto 0.7 X10*3/uL (0.1-1.2); Monocytes Percent Auto 9.1 % (2-11); Neutrophils Absolute Auto 5.2 x10*3/uL (2.0-8.3); Neutrophils Percent Auto 68.3 % (45-73); Platelet Count 179 X10*3/uL (160-400); Red Blood Count 4.64 X10*6/uL (4.60-5.80); White Blood Count 7.7 X10*3/uL (4.8-10.8)
--- NOTE | 2024-07-09 16:03 | PC.NURSE ---
patient a&ox3, c/o 04/04 headache/cough, pt states he didnt take any otc medications at home, will continue to monitor
[2024-07-09 16:07] LABS: Anion Gap 9 (12-20); Blood Urea Nitrogen 11 mg/dL (9-16); Calcium 9.8 mg/dL (8.4-10.2); Carbon Dioxide 31 mmol/L (22-29); Chloride 105 mmol/L (96-108); Creatinine Clr Calc Pharmacy 108.7; Estimated Glomerular Filt Rate > 60; Glucose Random 95 mg/dL (60-115); Potassium 4.2 mmol/L (3.3-5.1); Sodium 141 mmol/L (135-145)
--- NOTE | 2024-07-09 16:12 | ED_ITS ---
HPI - URI/Sore Throat General Chief Complaint: Upper Respiratory Symptoms Stated Complaint: Fever, headache, cough Time Seen by Provider: 07/09/24 15:49 Source: patient and family Mode of arrival: ambulatory Limitations: no limitations History of Present Illness ED Provider: Sarina Palacios PA-C HPI Narrative: 33 yo male with history of COPD, active smoker, anxiety who presents to the ER for evaluation of 4 days of headache, productive cough, fevers, and body aches. he states symptoms started as a headache on tuesday, progressed to diffuse headaches, low grade fevers and diffuse body aches. he states he is bringing up green phelgm. he has cutback on smoking but continues to smoke. he denies chest pain, N/V/D or abdominal pain. endorses decreased po intake, weakness and fatigue. MD elicited complaint: fever and cough Pertinent past history: COPD Onset (ago): day(s) (4) Consistency: progressively worsening Severity: severe Description of mucous: yellow and green Able to tolerate fluids by mouth: Yes Exacerbating factors: deep breaths Relieving factors: nothing Associated symptoms: fever, chills, myalgias and diaphoresis Related Data Home Medications ?Medication ?Instructions ?Recorded ?Confirmed clonidine HCl 0.1 mg tablet 0.1 - 0.2 mg PO BEDTIME PRN 05/25/23 05/25/23 insomnia methadone 10 mg/mL oral mg PO DAILY 05/25/23 concentrate (Methadose) Previous Rx's ?Medication ?Instructions ?Recorded cephalexin 500 mg tablet 500 mg PO Q6H 10 days #40 tabs 05/25/23 doxycycline hyclate 100 mg capsule 100 mg PO BID 10 days #20 caps 05/25/23 acetaminophen 325 mg tablet 650 mg (2 x 325 mg) PO Q6H PRN 05/26/23 Pain, Mild (Pain Scale 1-3) 30 days #240 tabs celecoxib 200 mg capsule 200 mg PO BID 30 days #60 caps 05/26/23 oxycodone 5 mg tablet 5 mg PO Q4H PRN Pain, 05/26/23 Moderate(Pain Scale 4-6) 7 days #42 tabs amoxicillin 875 mg-potassium 1 tab PO BID #14 tabs 07/09/24 clavulanate 125 mg tablet azithromycin 250 mg tablet See Rx Instructions PO .COMPLEX #6 07/09/24 (Zithromax Z-Clark) tabs benzonatate 100 mg capsule 100 mg PO TID PRN cough #30 caps 07/09/24 Allergies Allergy/AdvReac Type Severity Reaction Status Date / Time Seasonal Allergies Allergy Mild Itchy Eyes Verified 07/09/24 15:38 tree nut [TREE NUT] Allergy Mild ITCHY Verified 07/09/24 15:38 THROAT PMFSH Past Medical History Medical History Opiate addiction Smoker Social History Social History Household Members: Family Housing: Apartment Do you presently have visiting nurse or other home services: No Patient Tobacco Use Status: Current everyday Tobacco user Tobacco use type: Cigarette Cigarettes Per Day: 10 Years Smoked: 15 Advance Directives: No Advance Directives Information Provided: No Do you have a plan to hurt others: No Plan service: No Physical Exam 2 Vital Signs: Vital Signs: Last Vital Signs Temp 97.9 F 07/09/24 17:47 Pulse 77 07/09/24 17:47 Resp 20 07/09/24 17:47 BP 129/90 H 07/09/24 17:47 Pulse Ox 98 07/09/24 17:47 O2 Del Method Room Air 07/09/24 17:47 BMI result Body Mass Index 26.6 Appearance: Alert. Oriented X3. appears ill, pale Head: normocephalic, atraumatic. Eyes: Pupils equal, round and reactive to light. ENT: Pharynx normal. No tonsillar swelling or exudate. Neck: Normal inspection. Neck supple. CVS: Normal heart rate and rhythm. Pulses normal. Respiratory: No respiratory distress. Breath sounds normal. congested cough Abdomen: Soft and nontender. +BS x4 Skin: Skin warm and dry. Normal skin color. Normal skin turgor. No rashes. Extremities: No lower extremity edema. No joint swelling. Neuro/psych: Oriented X 3. No motor deficit. No sensory deficit. CN II-XII intact. Normal speech and cognition. Medical Decision Making Medical Decision Making MDM Narrative: 33 yo male with history of copd, active smoker presenting with cough, fever, headache and body aches x4 days. vss on arrival. saturating well with clear lungs on exam. labs today show no leukocytosis. no metabolic derangements. viral swab negative. cxr reviewed - patchy opacities c/w pna. will treat with po augmentin and zpak. no signs of sepsis. not hypoxic stable for d/c home. with outpatient follow up. we discussed importance of smoking cessation. Differential Diagnosis Differential Diagnoses: The differential diagnosis associated with the presentation includes covid, flu, rsv, bronchitis, PNA, COPD exacerbation Admission/Observation Consideration of admission/observation: Escalation of care including admission/observation considered Lab Data MDM Lab Attestation statement: I reviewed the patient's lab results. no leukocytosis, normal renal function 07/09/24 15:47 07/09/24 15:47 Labs: Lab Results 07/09/24 Range/Units 15:47 WBC 7.7 (4.8-10.8) X10*3/uL RBC 4.64 D (4.60-5.80) X10*6/uL Hgb 14.3 D (14.0-18.0) g/dl Hct 42.0 D (42.0-52.0) % MCV 90.5 (80.0-98.0) fL MCH 30.8 (27.0-33.0) pg MCHC 34.0 (31.0-36.0) g/dl RDW 12.0 (11.0-16.0) % Plt Count 179 (160-400) X10*3/uL MPV 9.4 (9.4-12.4) fL Immature Gran % (Auto) 0.3 (0.0-0.4) % Neut % (Auto) 68.3 (45-73) % Lymph % (Auto) 20.4 (20-40) % Victoria % (Auto) 9.1 (2-11) % Eos % (Auto) 1.4 (0-4) % Baso % (Auto) 0.5 (0-2) % Lymph # (Auto) 1.6 (1.2-4.9) X10*3/uL Victoria # (Auto) 0.7 (0.1-1.2) X10*3/uL Eos # (Auto) 0.1 (0.0-0.4) X10*3/uL Baso # (Auto) 0.0 (0.0-0.2) X10*3/uL Abs Immat Gran (auto) 0.02 (0.00-0.03) X10*3/uL Absolute Neuts (auto) 5.2 (2.0-8.3) x10*3/uL Absolute Nucleated RBC 0.000 (0.0-0.012) X10*3/uL Nucleated RBC % (auto) 0.0 (0.0-0.2) /100WBC Sodium 141 (135-145) mmol/L Potassium 4.2 (3.3-5.1) mmol/L Chloride 105 (96-108) mmol/L Carbon Dioxide 31 H (22-29) mmol/L Anion Gap 9 L (12-20) BUN 11 (9-16) mg/dL Creatinine 0.88 (0.5-1.4) mg/dL Estim Creat Clear Calc 108.7 Estimated GFR > 60 Random Glucose 95 (60-115) mg/dL Calcium 9.8 (8.4-10.2) mg/dL Influenza Type A (PCR) NEGATIVE (Negative) Influenza Type B (PCR) NEGATIVE (Negative) RSV RNA Qual (PCR) NEGATIVE (Negative) SARS-CoV-2 RNA (RT-PCR) NEGATIVE (Negative) Independent Interpretation I performed an independent interpretation of an: Plain X-Ray Interpretation: cxr with patchy opacities c/w PNA Radiology Impression Discussion of test interpretation with radiology: I have reviewed the radiologist's reading. Radiologist Impression: EXAMINATION: XR CHEST 4:03 PM CLINICAL INFORMATION: Cough COMPARISON: 12/01/2018 TECHNIQUE: Frontal view of the chest was obtained. FINDINGS: There are small areas of patchy airspace opacity in the midlung zones bilaterally. No pleural effusions are evident. The cardiomediastinal silhouette is normal. XR/XR chest 1V IMPRESSION: Small patchy areas of airspace opacity in the midlung zones bilaterally, suspicious for viral pneumonia or bronchopneumonia. Follow-up is recommended to confirm clearing. Independent Historian Clinical information obtained from an independent historian. History obtained from or confirmed by: Spouse External Record Review External record reviewed: Outpatient record, Prior outpatient labs and Prior outpatient radiology Prescription Management I considered prescription management with: Antibiotic Chronic Conditions Patient?s care impacted by: Other (copd) Procedures Smoking Cessation Time Spent Discussing Smoking Cessation w/Patient (min): 4 Patient Acknowledges Need for Cessation: Yes Critical Care Time Critical Care Time Critical Care Time: No Discharge Plan Discharge Clinical Impression: Pneumonia Qualifiers: Pneumonia type: due to unspecified organism Laterality: unspecified laterality Lung location: unspecified part of lung Qualified Code(s): J18.9 - Pneumonia, unspecified organism Patient Disposition: Home, Self-Care Instructions: Community Acquired Pneumonia (DC) Additional Instructions: your lab workup today was normal you test negative for covid, flu and rsv your chest x-ray showed pneumonia Take the prescribed antibiotics as directed, complete the entire course and do not miss any doses do your best to stop smoking rest and drink plenty of fluids take over the counter cold/flu medications as needed for your symptoms. If you develop new or worsening symptoms call 911 or come back to the ER for further evaluation. Prescriptions: New amoxicillin-pot clavulanate 875-125 mg tablet 1 tab PO BID Qty: 14 0RF azithromycin [Zithromax Z-Clark] 250 mg tablet See Rx Instructions PO .COMPLEX Qty: 6 0RF Rx Instructions: take 500 mg today (day 1), then 250 mg for 4 days (days 2-5) benzonatate 100 mg capsule 100 mg PO TID PRN (Reason: cough) Qty: 30 0RF No Action doxycycline hyclate 100 mg capsule 100 mg PO BID 10 Days Qty: 20 0RF cephalexin 500 mg tablet 500 mg PO Q6H 10 Days Qty: 40 0RF clonidine HCl 0.1 mg tablet 0.1 - 0.2 mg PO BEDTIME PRN (Reason: insomnia) methadone [Methadose] 10 mg/mL Concentrate PO DAILY celecoxib 200 mg Capsule 200 mg PO BID 30 Days Qty: 60 0RF acetaminophen 325 mg Tablet 650 mg PO Q6H PRN (Reason: Pain, Mild (Pain Scale 1-3)) 30 Days Qty: 240 0RF oxycodone 5 mg Tablet 5 mg PO Q4H PRN (Reason: Pain, Moderate(Pain Scale 4-6)) 7 Days Qty: 42 0RF Rx Instructions: Partial Fill upon patient request. Stand Alone Forms: Work/School Release Interventions: ED Discharge Assessment Last Done: 07/09/24 17:47 Discharge Date/Time: 07/09/24 17:47 Print Language: Upper Sorbian
[2024-07-09 16:27] LABS: Influenza A PCR NEGATIVE (Negative); Influenza B PCR NEGATIVE (Negative); Resp Syncy Virus RNA Qual PCR NEGATIVE (Negative); SARS COV2 PCR INHOUSE NEGATIVE (Negative)
[2024-07-09 17:47] VITALS: BP 129/90; PULSE 77; RESP 20; TEMP 36.6; O2SAT 98
== END 2024-07-09 17:47 | disposition home or self-care (01) ==
PROVIDERS: Emergency Provider Emergency Medicine
DX: J18.9 Pneumonia, unspecified organism (principal); R50.9 Fever, unspecified; R51.9 Headache, unspecified; R05.9 Cough, unspecified; F41.9 Anxiety disorder, unspecified; M79.10 Myalgia, unspecified site; Z79.899 Other long term (current) drug therapy
CPT/HCPCS: 0241U; 71045; 80048; 85025; 99282; 99283